=== PATIENT | male | born 1935 | race Caucasian/White ===

== ENCOUNTER 2017-05-21 17:14 | Emergency (ER) | payer OTHER ==
[~2017-05-21] VITALS: Ht 177.8 cm; Wt 101.3 kg
[2017-05-21 17:25] VITALS: TEMP 37.3; Ht 177.8 cm; Wt 101.3 kg
[2017-05-21] MEDS ORDERED: OPTIRAY 320 IV PRN (19:15)
[2017-05-21] MEDS ORDERED: GLIM2TAB2 PO (19:21)
[2017-05-21] MEDS ORDERED: ASPI-427 PO (19:21)
[2017-05-21] MEDS ORDERED: VLSO15 TOP (19:21)
[2017-05-21] MEDS ORDERED: ATOR-22 PO (19:21)
[2017-05-21] MEDS ORDERED: CARV6.25 PO (19:21)
[2017-05-21] MEDS ORDERED: METF-384 PO (19:21)
[2017-05-21] MEDS ORDERED: MULTCHW PO (19:22)
[2017-05-21 19:58] LABS: URINE APPEARANCE CLEAR (CLEAR); URINE COLOR ORANGE; URINE EPITHELIAL CELL AUTO 20-30 /lpf (0-5); URINE NITRITE POS (NEG); URINE SPECIFIC GRAVITY 1.037 (1.000-1.030); UROBILINOGEN NEG (NEG); ZZUR CULT IF INDIC CLEAN CATCH NO
[2017-05-21 20:02] LABS: MANUAL MICROSCOPIC REQUIRED? NO; REVIEW REQ? NO; URINE BILIRUBIN NEG (NEG)
[2017-05-21 20:32] LABS: BASO % 0.9 %; BASO ABS # 0.04 K/uL (0-0.2); COMPLETE YES; LYMPH % 37.2 %; LYMPH ABS # 1.63 K/uL (1.2-3.4); MEAN CORPUSCULAR HEMOGLOBIN 30.8 pg (25-34); MEAN CORPUSCULAR HGB CONC 33.2 g/dl (32-36); MEAN PLATELET VOLUME 11.5 fL (7.4-10.4); MONO % 15.8 %; NEUT % 46.1 %; PLATELET COUNT 154 K/uL (130-400); RED BLOOD COUNT 4.41 M/uL (4.7-6.1); WHITE BLOOD COUNT 4.38 K/uL (4.8-10.8)
--- NOTE | 2017-05-21 20:34 | EMERGENCY ROOM VISIT NOTE ---
ED Visit Note First contact with patient: 18:40 Patient was seen by our PA/TRAFFIC II MANAGER. I was involved in the patient's care and did evaluate the patient myself. I was involved in the care throughout the ER stay. The patient presents with intermittent abdominal pain. He's had some chills and sweats. Laboratory testing has been ordered and is pending. Urine testing has been ordered. An abdominal and pelvis CT has been ordered. Results are pending at this time. Right now, the patient is in no significant distress, he is not toxic or febrile. Disposition will depend on the results of his testing.
--- NOTE | 2017-05-21 20:57 | DIAGNOSTIC IMAGING REPORT ---
CHEST 2 VIEWS ROUTINE CLINICAL HISTORY: fevers/chills/night sweats COMPARISON STUDY: No previous studies for comparison. FINDINGS: The heart is normal in size. There is no failure. There is no lobar consolidation. There are old left-sided rib fractures. There is subtle interstitial thickening with a subpleural distribution.[ IMPRESSION: Subtle interstitial thickening with a subpleural distribution, possibly chronic. No evidence of lobar consolidation. Electronically signed by: Alistair Penaloza M.D. 05/21/2017 8:56 PM Dictated Date/Time: 05/21/2017 8:55 PM
[2017-05-21 21:03] LABS: ALKALINE PHOSPHATASE 89 U/L (45-117); ALT/SGPT 43 U/L (12-78); AST/SGOT 32 U/L (15-37); BLOOD UREA NITROGEN 16 mg/dl (7-18); BUN/CREATININE RATIO 15.7 (10-20); CALCIUM 8.5 mg/dl (8.5-10.1); CARBON DIOXIDE 28 mmol/L (21-32); CHLORIDE 101 mmol/L (98-107); GLUCOSE 274 mg/dl (70-99); MAGNESIUM 1.8 mg/dl (1.8-2.4); POTASSIUM 4.1 mmol/L (3.5-5.1); SODIUM 134 mmol/L (136-145); THYROID STIMULATING HORMONE 0.961 uIu/ml (0.300-4.500)
--- NOTE | 2017-05-21 21:44 | DIAGNOSTIC IMAGING REPORT ---
CT ABD/PELVIS IV AND ORAL CONT CLINICAL HISTORY: Generalized abdominal pain COMPARISON STUDY: None. TECHNIQUE: Following the IV administration of 93 mL of Optiray-320, CT scan of the abdomen and pelvis was performed from the lung bases to the proximal femurs. Images are reviewed in the axial, sagittal, and coronal planes. IV contrast was administered without complication. A dose lowering technique was utilized adhering to the principles of ALARA. CT DOSE: 1025.75 mGycm FINDINGS: The study is mildly compromised due to patient motion artifact Lower chest: There are coronary artery calcifications. There are minimal dependent atelectatic changes. Liver: The contrast-enhanced liver is normal in size, contour, and attenuation. There is no intrahepatic biliary ductal dilatation. The hepatic veins and portal veins are patent. Gallbladder: Unremarkable. Spleen: Normal in size and attenuation. Pancreas: Unremarkable. Adrenal glands: Unremarkable. Kidneys: There is a 6 mm right renal cyst. There are no solid renal masses. There is no hydronephrosis. Bowel: There are no transition zones indicate bowel obstruction. By history the appendix is surgically absent. There is no acute appendicitis. Peritoneum: There is a fat-containing umbilical hernia with mild edema of the hernia fat. Vasculature: The abdominal aorta is normal in course and caliber. Adenopathy: None. Pelvic viscera: The bladder, and pelvic viscera are unremarkable. Skeletal structures: No destructive osseous lesions are seen. IMPRESSION: 1. No evidence of bowel obstruction. No evidence of free air 2. Surgically absent appendix. No evidence of acute diverticulitis 3. Fat-containing umbilical hernia with mild edema of the hernia fat Electronically signed by: Alistair Penaloza M.D. 05/21/2017 9:42 PM Dictated Date/Time: 05/21/2017 9:39 PM
[2017-05-21 21:50] VITALS: BP 155/76; PULSE 72; O2SAT 98
[2017-05-21] MEDS ORDERED: CIPROFLOXACIN 500 MG TAB PO STA (21:51)
[2017-05-21] MEDS ORDERED: CIPR-255 PO (22:01)
--- NOTE | 2017-05-21 22:04 | EMERGENCY ROOM VISIT NOTE ---
History First contact with patient: 18:40 Chief Complaint: OTHER COMPLAINT Stated Complaint: CHILLS,SWEATS History of Present Illness The patient is a 82 year old male who presents to the Emergency Room with complaints of intermittent abdominal pain, fevers, chills, night sweats. The patient states his symptoms have been going on for several months. He has not seen his PCP in over one year. The patient states in the past 2 months, he has had 2 episodes of an abdominal bulge through the belly button. He states that this is painful and that the bulge is hard on occasion. He states that he leaves it alone and does not mess with it, and it eventually goes away on its own. The patient states he has also on occasion over the past few months had some shivering, chills, sweats, and has awoken on several occasions in the middle of the night with soaked bedsheets to sweating. The patient is in the process of changing his PCP to Dr. Crum, and has an appointment scheduled for June 10. The patient did not feel that he was able to wait because of his pain in his abdomen, so contact edema on any medical group today. He states he talked to a nurse who advised him to come to the emergency Department in case he has a hernia or an ulcer. The patient denies nausea, diarrhea, constipation, fevers, urinary symptoms, chest pain, dyspnea, headache, dizziness. He denies syncope, confusion, altered mental status. The patient states his pain is only located where and when he has the lump in his abdomen. He rates this pain 3/10. Review of Systems A complete 10 point review of systems was reviewed with the patient with pertinent positives and negatives as per history of present illness. All else were negative. Past Medical/Surgical History Patient denies Social History Smoking Status: Never Smoker Smokeless Tobacco Use: No Alcohol Use: none Drug Use: none Marital Status: Housing Status: lives with family Occupation Status: retired Current/Historical Medications Scheduled Aspirin (Ecotrin Regular Strength), 1 TAB PO DAILY Atorvastatin (Lipitor), 20 MG PO DAILY Carvedilol (Coreg), 6.25 MG PO BID Ciprofloxacin Hcl (Cipro), 500 MG PO BID Glimepiride (Glimepiride), 1 TAB PO DAILY Metformin Hcl (Glucophage), 1,000 MG PO BID Multiple Vitamins W/ Minerals (Centrum Silver), 1 TAB PO DAILY Scheduled PRN Betamethasone Rosa (Valisone 0.1% Oint), 1 APPLN TOP BID PRN for ITCHING Allergies None Physical Exam Vital Signs Date Time Temp Pulse Resp B/P (MAP) Pulse Ox O2 Delivery O2 Flow Rate FiO2 05/21/17 21:50 72 16 155/76 98 Room Air 05/21/17 20:56 97 16 170/72 98 Room Air 05/21/17 20:09 98 05/21/17 19:31 94 16 163/71 96 Room Air 05/21/17 17:25 37.3 113 18 135/79 95 Room Air Physical Exam VITALS: Vitals are noted on the nurse's note and reviewed by myself. Vital signs stable. GENERAL: This is an 82-year-old male, in no acute distress, nondiaphoretic, well -developed well-nourished. SKIN: The skin was without rashes, erythema, edema, or bruising. There is no tenting of the skin. Capillary reflex less than 2 seconds. HEAD: Normocephalic atraumatic. EARS: External auditory canals clear, tympanic membranes pearly batres without erythema or effusion bilaterally. EYES: Pupils equal round and reactive to light and accommodation. Conjunctivae without injection, sclerae without icterus. Extraocular movements intact. NOSE: Patent, turbinates without inflammation or discharge. No sinus tenderness. MOUTH: Mucous membranes moist. Tonsils are not enlarged. Pharynx without erythema or exudate. Uvula midline. Airway patent. Tongue does not deviate. NECK: Supple without nuchal rigidity. No lymphadenopathy. No thyromegaly. Cervical spine is nontender. No JVD. HEART: Regular rate and rhythm without murmurs gallops or rubs. LUNGS: Clear to auscultation bilaterally without wheezes, rales or rhonchi. No dullness to percussion. No retractions or accessory muscle use. ABDOMEN: Positive bowel sounds x 4. Normal tympanic percussion. Soft, nontender, without masses or organomegaly. No palpable mass or hernia on examination at this time. Doran sign negative. No guarding or rebound tenderness. MUSCULOSKELETAL: No muscle atrophy, erythema, or edema noted. Full range of motion without joint tenderness in all extremities. No tenderness to palpation. Normal gait. Strength 5/5 throughout. NEURO: Patient was alert and oriented to person place and time. Normal sensation to light and sharp touch. Deep tendon reflexes 2+ throughout. No focal neurological deficits. Medical Decision & Procedures ER Provider Diagnostic Interpretation: LABS: CBC revealed extremely mild anemia, no leukocytosis, thrombocytopenia. CMP showed elevated blood glucose level of 274. Based on the patient's medications, I believe that the patient is diabetic, and he has not been to a doctor in over a year. The patient's electrolytes, kidney function, liver function were normal. Negative lipase. Negative CK-MB. Negative troponin. Negative TSH. Lactic acid was normal. Blood cultures are pending. Urinalysis did show positive nitrites, leuk esterase, and very minimal white blood cells. Further, the urine did show positive protein, glucose, and trace ketones. Urine culture is pending. RADIOLOGY: Chest x-ray: FINDINGS: The heart is normal in size. There is no failure. There is no lobar consolidation. There are old left-sided rib fractures. There is subtle interstitial thickening with a subpleural distribution.[ IMPRESSION: Subtle interstitial thickening with a subpleural distribution, possibly chronic. No evidence of lobar consolidation. CT abdomen/pelvis with IV and oral contrast: FINDINGS: The study is mildly compromised due to patient motion artifact Lower chest: There are coronary artery calcifications. There are minimal dependent atelectatic changes. Liver: The contrast-enhanced liver is normal in size, contour, and attenuation. There is no intrahepatic biliary ductal dilatation. The hepatic veins and portal veins are patent. Gallbladder: Unremarkable. Spleen: Normal in size and attenuation. Pancreas: Unremarkable. Adrenal glands: Unremarkable. Kidneys: There is a 6 mm right renal cyst. There are no solid renal masses. There is no hydronephrosis. Bowel: There are no transition zones indicate bowel obstruction. By history the appendix is surgically absent. There is no acute appendicitis. Peritoneum: There is a fat-containing umbilical hernia with mild edema of the hernia fat. Vasculature: The abdominal aorta is normal in course and caliber. Adenopathy: None. Pelvic viscera: The bladder, and pelvic viscera are unremarkable. Skeletal structures: No destructive osseous lesions are seen. IMPRESSION: 1. No evidence of bowel obstruction. No evidence of free air 2. Surgically absent appendix. No evidence of acute diverticulitis 3. Fat-containing umbilical hernia with mild edema of the hernia fat Laboratory Results 05/21/17 20:16 Red Blood Count 4.41, Mean Corpuscular Volume 93.0, Mean Corpuscular Hemoglobin 30.8, Mean Corpuscular Hemoglobin Concent 33.2, Mean Platelet Volume 11.5, Neutrophils (%) (Auto) 46.1, Lymphocytes (%) (Auto) 37.2, Monocytes (%) (Auto) 15.8, Eosinophils (%) (Auto) 0.0, Basophils (%) (Auto) 0.9, Neutrophils # (Auto ) 2.02, Lymphocytes # (Auto) 1.63, Monocytes # (Auto) 0.69, Eosinophils # (Auto ) 0.00, Basophils # (Auto) 0.04 05/21/17 20:16 Test 05/21/17 18:59 05/21/17 19:37 05/21/17 20:16 05/21/17 20:40 Creatine Kinase MB Ratio (0-3.0) Urine Color ORANGE Urine Appearance CLEAR (CLEAR) Urine pH 5.0 (4.5-7.5) Urine Specific [place] 1.037 (1.000-1.030) Urine Protein 2+ (NEG) Urine Glucose (UA) 2+ (NEG) Urine Ketones TRACE (NEG) Urine Occult Blood NEG (NEG) Urine Nitrite POS (NEG) Urine Bilirubin NEG (NEG) Urine Urobilinogen NEG (NEG) Urine Leukocyte Esterase TRACE (NEG) Urine WBC (Auto) 1-5 /hpf (0-5) Urine RBC (Auto) 5-10 /hpf (0-4) Urine Hyaline Casts (Auto) 10-30 /lpf (0-5) Urine Epithelial Cells (Auto) 20-30 /lpf (0-5) Urine Bacteria (Auto) NEG (NEG) White Blood Count 4.38 K/uL (4.8-10.8) Red Blood Count 4.41 M/uL (4.7-6.1) Hemoglobin 13.6 g/dL (14.0-18.0) Hematocrit 41.0 % (42-52) Mean Corpuscular Volume 93.0 fL (80-100) Mean Corpuscular Hemoglobin 30.8 pg (25-34) Mean Corpuscular Hemoglobin Concent 33.2 g/dl (32-36) Platelet Count 154 K/uL (130-400) Mean Platelet Volume 11.5 fL (7.4-10.4) Neutrophils (%) (Auto) 46.1 % Lymphocytes (%) (Auto) 37.2 % Monocytes (%) (Auto) 15.8 % Eosinophils (%) (Auto) 0.0 % Basophils (%) (Auto) 0.9 % Neutrophils # (Auto) 2.02 K/uL (1.4-6.5) Lymphocytes # (Auto) 1.63 K/uL (1.2-3.4) Monocytes # (Auto) 0.69 K/uL (0.11-0.59) Eosinophils # (Auto) 0.00 K/uL (0-0.5) Basophils # (Auto) 0.04 K/uL (0-0.2) RDW Standard Deviation 45.0 fL (36.4-46.3) RDW Coefficient of Variation 13.2 % (11.5-14.5) Immature Granulocyte % (Auto) 0.0 % Immature Granulocyte # (Auto) 0.00 K/uL (0.00-0.02) Anion Gap 5.0 mmol/L (3-11) Est Creatinine Clear Calc Drug Dose 69.1 ml/min Estimated GFR () 81.4 Estimated GFR (Non- 70.3 BUN/Creatinine Ratio 15.7 (10-20) Calcium Level 8.5 mg/dl (8.5-10.1) Magnesium Level 1.8 mg/dl (1.8-2.4) Total Bilirubin 2.1 mg/dl (0.2-1) Aspartate Amino Transf (AST/SGOT) 32 U/L (15-37) Alanine Aminotransferase (ALT/SGPT) 43 U/L (12-78) Alkaline Phosphatase 89 U/L (45-117) Creatine Kinase MB < 0.5 ng/ml (0.5-3.6) Troponin I < 0.015 ng/ml (0-0.045) Total Protein 7.1 gm/dl (6.4-8.2) Albumin 3.6 gm/dl (3.4-5.0) Globulin 3.5 gm/dl (2.5-4.0) Albumin/Globulin Ratio 1.0 (0.9-2) Lipase 204 U/L (73-393) Thyroid Stimulating Hormone (TSH) 0.961 uIu/ml (0.300-4.500) Chemistry Specimen Hemolysis Lactic Acid Level 1.6 mmol/L (0.4-2.0) Medications Administered Medications (Trade) Dose Ordered Sig/Tosin Route Start Time Stop Time Status Last Admin Dose Admin Ciprofloxacin (Cipro Tab) 500 mg NOW STAT PO 05/21/17 21:51 05/21/17 21:54 DC 05/21/17 21:51 500 MG ECG Indication: abdominal pain Rate (beats per minute): 98 Rhythm: normal sinus Findings: no acute ischemic change, no ectopy ED Course The patient was seen and evaluated as above. Based on his vague symptoms, I did feel that the most appropriate course of action was to start a broad workup. Labs, EKG, chest x-ray, CT abdomen were ordered. The patient was seen and evaluated by Dr. Samuels. I did review all studies as they became available. I discussed the slight abnormalities in the patient's chest x-ray and lab work with him. I encouraged patient to follow up with his PCP regarding these findings. CT scan did verify a ventral, fat-containing hernia. I do feel that this is the cause of the bulge in the patient's abdomen. The patient was given a dose of ciprofloxacin in the emergency department for his urinary tract infection. The patient was discharged home in good condition with home care instructions and follow-up instructions. Medical Decision The patient presented today with very vague symptoms in the emergency department. I do believe that the bulge she is speaking of and his abdomen is caused by the central, fat-containing hernia. I do not feel that this needs further treatment, but the patient is concerned about the discomfort he experiences with this hernia. I did encourage him to follow up with a surgeon if needed. There are some nonspecific findings on the patient's chest x-ray and labs. I did encourage the patient to follow up with his PCP regarding his findings. Incidentally, we did note a urinary tract infection. I believe that it is possible that the urinary tract infection is causing the patient's random sweats intermittently. Urine culture is pending, and the patient will be treated at this time. Differential diagnosis includes: Urinary tract infection, pneumonia, diverticulitis, abscess, abdominal infection, nephrolithiasis, tuberculosis, malignancy, hernia, and others. Medication Reconcilliation Current Medication List: was personally reviewed by me Blood Pressure Screening Patient's blood pressure: Normal blood pressure Impression Primary Impression: Urinary tract infection Additional Impression: Ventral hernia Departure Information Dispostion Home / Self-Care Condition GOOD Prescriptions Ciprofloxacin Hcl (CIPRO) 500 Mg Tab 500 MG PO BID for 10 Days, #20 TAB Prov: Rashida Salcido PA-C 05/21/17 Referrals Jerome Crum M.D. (PCP) Patient Instructions ED UTI Cystitis Male, My [facility] Additional Instructions He was seen in the emergency department today regarding abdominal pain and a ventral hernia. CT scan did verify the ventral hernia, which is fat- containing. We did note a UTI in the ED as well, for which you will be treated. You have been prescribed Cipro to be taken twice daily. This is an antibiotic. All antibiotics have the potential to cause diarrhea. Stop this medication and contact a medical provider if you were to develop any significant adverse side effects including: wheezing, shortness of breath, passing out, vomiting, or a diffuse rash. Please avoid excessive or heavy lifting, as this medication does increase her risk for tendon rupture. Always take antibiotics as directed and COMPLETE the ENTIRE course regardless of the improvement of your symptoms. Drink plenty of water and stay well hydrated. If you continue to experience significant pain and discomfort with the hernia, you should follow up with a general surgeon. Then provided with the name and phone number for a local surgeon. As with any trip to the Emergency Department, you should follow-up with your Primary Care Provider from today's visit. Your appointment on June 10 is reasonable for this follow-up. Return to the emergency department if your symptoms persist despite treatment plan outlined above or if the following symptoms occur: increased fevers, chills , low back pain, nausea/vomiting, or blood in your urine. Problem Qualifiers Primary Impression: Urinary tract infection Urinary tract infection type: site unspecified Hematuria presence: without hematuria Qualified Codes: N39.0 - Urinary tract infection, site not specified Additional Impression: Ventral hernia Obstruction and gangrene presence: without obstruction or gangrene Qualified Codes: K43.9 - Ventral hernia without obstruction or gangrene
== END 2017-05-21 22:20 | disposition home or self-care (01) ==
LOC: C.EDB 17:15 → C.EDA 22:20
DX: N39.0 Urinary tract infection, site not specified (principal); K43.9 Ventral hernia without obstruction or gangrene; Z79.82 Long term (current) use of aspirin; Z79.899 Other long term (current) drug therapy

== ENCOUNTER → 2018-05-16 | Outpatient (CLI) | payer OTHER ==
[~2018-05-16] MED LIST: ASPI-427 PO; ATOR-22 PO; CARV6.25 PO; CIPR-255 PO; GLIM2TAB2 PO; METF-384 PO; MULTCHW PO; VLSO15 TOP
[2018-05-16 14:15] LABS: HEMOGLOBIN A1C 8.3 % (4.5-5.6)
[2018-05-16 14:22] LABS: BLOOD UREA NITROGEN 15 mg/dl (7-18); CALCIUM 8.9 mg/dl (8.5-10.1); CARBON DIOXIDE 25 mmol/L (21-32); CREATININE 0.87 mg/dl (0.60-1.40); GLUCOSE 145 mg/dl (70-99); POTASSIUM 4.4 mmol/L (3.5-5.1); SODIUM 139 mmol/L (136-145)
== END | disposition home or self-care (01) ==
LOC: C.LABPBG 07:48
PROVIDERS: ATTEND Internal Medicine
DX: I10 Essential (primary) hypertension (principal); E11.29 Type 2 diabetes mellitus with other diabetic kidney complication; R80.9 Proteinuria, unspecified

== ENCOUNTER 2019-07-17 06:35 | Observation (INO) ==
[2019-07-13 15:41] LABS: Basophils # (auto) 0.04 K/uL (0-0.2); Basophils % (auto) 0.5 %; Eosinophils # (auto) 0.03 K/uL (0-0.5); Eosinophils % (auto) 0.4 %; Hematocrit (blood only) 36.6 % (42-52); Hemoglobin 12.4 g/dL (14.0-18.0); Immature Granulocytes # (auto) 0.02 K/uL (0.00-0.02); Immature Granulocytes % (auto) 0.2 %; Lymphocytes # (auto) 2.44 K/uL (1.2-3.4); Mean Corpuscular Hemoglobin 31.4 pg (25-34); Mean Corpuscular Hgb Conc 33.9 g/dL (32-36); Mean Corpuscular Volume 92.7 fL (80-100); Mean Platelet Volume 10.1 fL (7.4-10.4); Monocytes # (auto) 0.71 K/uL (0.11-0.59); Monocytes % (auto) 8.7 %; Neutrophils # (auto) 4.89 K/uL (1.4-6.5); Neutrophils % (auto) 60.2 %; Platelet Count 351 K/uL (130-400); RDW Coefficient of Variation 12.5 % (11.5-14.5); RDW Standard Deviation 42.7 fL (36.4-46.3); Red Blood Count 3.95 M/uL (4.7-6.1); White Blood Count 8.13 K/uL (4.8-10.8)
[2019-07-13 15:58] LABS: Appearance Urine Clear (Clear); Bacteria Urine Automated Negative (Negative); Bilirubin Urine Negative (Negative); Blood Urine Negative (Negative); Color Urine Dark Yellow; Glucose Urine UA Negative (Negative); Ketones Urine Trace (Negative); Leukocyte Esterase Urine Negative (Negative); Nitrite Urine Negative (Negative); Protein Urine Trace (Negative); RBC Urine Automated 0-4 /hpf (0-4); Specific Gravity Urine 1.033 (1.000-1.030); Urobilinogen Urine Positive (Negative); pH Urine 5.5 (4.5-7.5)
--- NOTE | 2019-07-14 13:50 | Anesthesiology Consultation ---
Date of Service July 14, 2019 Assessment & Plan Chart Review Chart Review: Acceptable Risk for Surgery and Patient NOT seen in Pre Admission Testing Consults Requested none ASA ASA4 Proposed Anesthesia Anesthesia Type: General Regional Regional Laterality: Right Site: Popliteal and Adductor Canal History Surgery Operation Date: 07/17/19 12:45 Proposed Procedures p Right Lateral Malleolus Fracture Open Reduction Internal Fixation - Nawaf [place], Height/Weight Height: 5 ft 9 in Weight: 92.986 kg Allergies Allergy/AdvReac Type Severity Reaction Status Date / Time No Known Allergies Allergy Verified 07/14/19 09:29 Medications Home Medications Medication Instructions Recorded Confirmed Last Taken aspirin [Ecotrin] 325 mg PO QAM 07/14/19 07/14/19 Unknown atorvastatin 20 mg PO QAM 07/14/19 07/14/19 Unknown carvedilol 6.25 mg PO BID 07/14/19 07/14/19 Unknown glimepiride 2 mg PO QAM 07/14/19 07/14/19 Unknown metformin 1,000 mg PO BID 07/14/19 07/14/19 Unknown iwgitlpu-hxm-LW-lycopen-lutein 1 tab PO QAM 07/14/19 07/14/19 Unknown [Centrum Silver] sitagliptin 50 mg PO QAM 07/14/19 07/14/19 Unknown Past Medical History Medical History Proteinuria due to type 2 diabetes mellitus Systolic murmur Hiatal hernia with GERD BMI 34.0-34.9,adult CAD (coronary artery disease) Mild anemia Diabetes mellitus, type 2 Hypertension Hyperlipidemia Exercise / Class Metabolic Activity III < 4 Walking/Shop/Light housework Past Family History Family History Other No significant family history Past Surgical History Surgical History History of appendectomy 1950 History of cataract surgery RT/LEFT Hx of vasectomy S/P trigger finger release Past Anesthesia History No Hx of Anesthesia Complications and No Family Hx of Anesthesia Complications History of PONV No Hx of PONV and No Hx of Motion Sickness Social History Smoking Status: Never smoker Do You Dip or Chew Tobacco: No Hx Alcohol Use: Yes Alcohol type: beer, wine and hard liquor alcohol intake frequency: a few times a month Hx Substance Use: No substance use type: does not use Testing Laboratory Results 07/13/19 14:30 Urine Color Dark Yellow 07/13/19 14:56 Urine Appearance Clear (Clear) 07/13/19 14:56 Urine pH 5.5 (4.5-7.5) 07/13/19 14:56 Ur Specific [place] 1.033 (1.000-1.030) H 07/13/19 14:56 Urine Protein Trace (Negative) H 07/13/19 14:56 Urine Glucose (UA) Negative (Negative) 07/13/19 14:56 Urine Ketones Trace (Negative) H 07/13/19 14:56 Urine Nitrite Negative (Negative) 07/13/19 14:56 Ur Leukocyte Esterase Negative (Negative) 07/13/19 14:56 Urine WBC (Auto) 1-5 /hpf (0-5) 07/13/19 14:56 Urine RBC (Auto) 0-4 /hpf (0-4) 07/13/19 14:56 U Hyaline Cast (Auto) 5-10 /lpf (0-5) H 07/13/19 14:56 U Epithel Cells (Auto) 5-10 /lpf (0-5) H 07/13/19 14:56 Urine Bacteria (Auto) Negative (Negative) 07/13/19 14:56 Electrocardiogram Date: 07/13/19 Findings: + NSR @ (at 96) Chest X-Ray Date: 07/13/19 Findings: + atherosclerosis of thoracic aorta chronic lung disease vs emphysema;? chronic indolent infection
--- NOTE | 2019-07-16 09:04 | History & Physical Report ---
Date of Service July 16, 2019 Assessment & Plan (1) Fracture of lateral malleolus of right ankle: Schedule ORIF right lateral malleolus fx for 07.16.19. All potential risks, benefits, complications, alternatives, and rehab have been discussed with the patient and he wishes to proceed. Plan for ASA 81 mg BID x 6 wks for post op DVT prophylaxis. History of Present Illness Chief Complaint: right ankle pain Primary Care Provider: Jerome Crum MD This is a patient who sustained a right ankle injury ~2 weeks ago. At the time of the injury, the pain was minimal. However, the following day, the pain worsened and he couldn't bear weight. X-rays noted a lateral malleolus fx with possible syndesmotic injury. He is being set up for surgical management. Allergies Allergy/AdvReac Type Severity Reaction Status Date / Time No Known Allergies Allergy Verified 07/14/19 14:47 Home Medications Home Medications Medication Instructions Recorded Confirmed Type aspirin [Ecotrin] 325 mg PO QAM 07/14/19 07/14/19 History atorvastatin 20 mg PO QAM 07/14/19 07/14/19 History carvedilol 6.25 mg tablet 6.25 mg PO DAILY tab 07/14/19 07/14/19 History glimepiride 2 mg PO QAM 07/14/19 07/14/19 History metformin 1,000 mg PO BID 07/14/19 07/14/19 History xhcegrta-ydr-DN-lycopen-lutein 1 tab PO QAM 07/14/19 07/14/19 History [Centrum Silver] oxycodone 5 mg capsule 5 mg PO Q6H PRN cap 07/14/19 07/14/19 History sitagliptin 50 mg PO QAM 07/14/19 07/14/19 History Past Med/Surg History Medical History Proteinuria due to type 2 diabetes mellitus Systolic murmur Hiatal hernia with GERD BMI 34.0-34.9,adult CAD (coronary artery disease) Mild anemia Diabetes mellitus, type 2 Hypertension Hyperlipidemia Surgical History History of appendectomy 1950 History of cataract surgery RT/LEFT Hx of vasectomy S/P trigger finger release Family History Other No significant family history Social History Preferred Language: Niuean Communication Ability: Effective Campus Security Officer Required: No Beliefs That Will Affect Care: None Current Living Situation: Alone Feels Safe at Home: Yes Smoking Status: Never smoker Second Hand Exposure: No ; Hx Alcohol Use: Yes Alcohol type: beer, wine and hard liquor Hx Substance Use: No Physical Exam Constitutional: well developed and well nourished; no acute distress ENMT: external ear and nose normal, oropharynx normal Neck: trachea midline, no thyromegaly Respiratory: normal respiratory effort, lungs clear to auscultation Cardiovascular: Rate/Rhythm: regular rate and regular rhythm Heart Sounds: + murmur Gastrointestinal (Abdomen): normal bowel sounds, soft, nontender, no hepatosplenomegaly Musculoskeletal: Shoulder: + joint line tenderness (right lateral malleolus) Ankle: + effusion (right), + limited ROM of ankle (right) and + joint line tenderness (right lateral malleolus); no deformity, no skin erythema and no ecchymosis Skin: no rashes, warm and dry Neurologic: normal touch/pain/proprioception Psychiatric: A+Ox3, euthymic affect Lymphatic: no cervical or axillary lymphadenopathy
[~2019-07-17 06:35] MED LIST changes: -ASPI-427 PO; -ATOR-22 PO; -CARV6.25 PO; +CEFAZOLIN 2000MG 2,000 MG/15 ML SYR IV SCH; -CIPR-255 PO; -GLIM2TAB2 PO; +LR 15ML/HR IV SCH; -METF-384 PO; -MULTCHW PO; +ROPIVACAINE 0.5% 5 MG/ML 30 ML VIAL ONE; -VLSO15 TOP
--- NOTE | 2019-07-17 07:36 | History & Physical Bridge Note ---
Date of Service July 17, 2019 History & Physical Bridge Note I have examined the patient, reviewed the History & Physical and in the interval since the performance of the History & Physical I have noted the following changes of clinical significance: no changes noted
[2019-07-17] MEDS ORDERED: fentaNYL citrate 100 MCG/2 ML VIAL ONE (07:38)
[2019-07-17] MEDS ORDERED: BUPIVACAINE/EPINEPHRINE 0.5% MPF 1:200,000 30 ML VIAL ONE (08:17)
[2019-07-17] MEDS ORDERED: CEFAZOLIN 2,000 MG/15 ML IV PUSH IV ONE (08:27)
[2019-07-17] MEDS ORDERED: MIDAZOLAM HCL 1 MG/ML 2ML VIAL ONE (08:30)
[2019-07-17] MEDS ORDERED: BUPIVACAINE 0.5 % 5 MG/1 ML MPF 30ML VIAL ONE (08:47)
[2019-07-17] MEDS ORDERED: PROPOFOL IV EMULSION 10 MG/ML 20 ML VIAL IV ONE (09:00)
[2019-07-17] MEDS ORDERED: LIDOCAINE HCL 2% 2 ML VIAL/AMP(20MG/ML) INFIL ONE (09:00)
[2019-07-17] MEDS ORDERED: ONDANSETRON INJ 2 MG/ML 2 ML VIAL ONE (09:00)
[2019-07-17] MEDS ORDERED: DEXAMETHASONE SOD INJ 4 MG/ML VIAL ONE (09:00)
[2019-07-17] MEDS ORDERED: KETOROLAC 30 MG/ML VIAL IV PRN (09:59)
[2019-07-17] MEDS ORDERED: fentaNYL citrate 100 MCG/2 ML VIAL IV PRN (09:59)
[2019-07-17] MEDS ORDERED: ONDANSETRON INJ 2 MG/ML 2 ML VIAL IV PRN ×2 (09:59→14:12)
[2019-07-17] MEDS ORDERED: ATROPINE SULFATE 0.1 MG/ML 10ML SYR IV PRN (09:59)
--- NOTE | 2019-07-17 10:01 | Post Operative Brief Note ---
Immediate Post Op Note v1 Date of Surgery July 17, 2019 Pre & Post Diagnosis Operation Date: 07/17/19 08:35 Pre-Op Diagnosis: Right Ankle Displaced Lateral Malleolus Fracture Post-Op Diagnosis: Right Ankle Displaced Lateral Malleolus Fracture I identified the patient and participated in the time-out.: Yes Procedure Operation Date: 07/17/19 08:35 Actual Procedures p Right Displaced Lateral Malleolus Fracture Open Reduction Internal Fixation(Right) - Nawaf Menchaca DO Surgeon Nawaf Menchaca DO Coil Inspector Bernard Thornton PA-C Estimated Blood Loss 2 Findings Consistent with Post-Op Diagnosis Specimens None Anesthesia Type General Regional Complications none Disposition Accompanied Patient To Recovery: No Disposition: Recovery Room Overlapping Procedure I was present for: the critical portions of procedure. I was immediately available: during the entire case.
--- NOTE | 2019-07-17 10:31 | Fluoroscopy Report ---
FL ankle RT min 3V RTN CLINICAL HISTORY: RT ORIF COMPARISON STUDY: None. FLUOROSCOPY TIME: 10 seconds. FINDINGS: 3 fluoroscopic spot images of the right ankle demonstrates internal fixation of a distal fi bular fracture with a cortical plate and screws. The hardware appears intact. The alignment appears a natomic. IMPRESSION: Fluoroscopy provided for internal fixation of a distal fibular fracture. Electronically signed by: Cameron Stover M.D. 07/17/2019 10:30 AM
[2019-07-17] MEDS ORDERED: OXYCODONE HCL IR 5 MG TAB (IMMEDIATE RELEASE) PO PRN ×2 (10:32→14:12)
[2019-07-17] MEDS ORDERED: ACETAMINOPHEN 1,000 MG/100 ML VIAL IV PRN (10:32)
--- NOTE | 2019-07-17 10:33 | Anesthesiology Progress Note ---
Date of Service July 17, 2019 Anesthesia Post Procedure Vital Signs Vital Signs: Temp Pulse Pulse Resp BP Pulse Ox 07/17/19 10:30 70 16 129/56 L 100 07/17/19 10:20 36.0 C L 83 16 127/51 L 99 07/17/19 07:04 36.6 C 88 18 141/71 H 96 Pain Intensity Right Ankle: Pain Intensity: 3 Transfer of Care Handoff Completed per policy Notes Mental Status: alert / awake / arousable Patient Amnestic to Procedure: Yes Nausea / Vomiting: adequately controlled Pain: adequately controlled Airway Patency, RR, SpO2: stable & adequate BP & HR: stable & adequate Hydration State: stable & adequate Anesthetic Complications: no major complications apparent
--- NOTE | 2019-07-17 10:54 | Operative Report ---
DATE OF OPERATION: 07/17/2019 PREOPERATIVE DIAGNOSIS: Right displaced lateral malleolus fracture. POSTOPERATIVE DIAGNOSIS: Right displaced lateral malleolus fracture. PROCEDURE: Open reduction and internal fixation of right displaced lateral malleolus fracture. SURGEON: Nawaf Menchaca DO. TERMINAL WORKER: WILLIAM Madera who was present for patient positioning, sterile prep and drape, management of retractors and instruments. He was present through the critical portions of the case including wound closure, application of sterile dressing and transport of the patient to recovery. ANESTHESIA: General regional. SPECIMENS: None. DRAINS: None. COMPLICATIONS: None. BLOOD LOSS: 2 mL. PERTINENT HISTORY: This is an 84-year-old gentleman who sustained a twisting injury of his right ankle. He sustained a displaced right lateral malleolus fracture with widening of the ankle mortise. The patient was then scheduled for surgery as indicated. All potential risks, benefits, complications, alternatives, rehab potential for incomplete relief of symptoms, need for further surgery, DVT, PE, , persistent pain, swelling, scarring, weakness, neurovascular injury, wound complications, hardware failure, nonunion, malunion, bone fracture were discussed with the patient. The patient decided to proceed with the procedure as indicated. DESCRIPTION OF PROCEDURE: After popliteal block was administered to the patient by the anesthesiologist, the patient was then taken to the operative suite, placed supine on the operating room table. I reviewed consent and identification of proper operative site, patient was anesthetized, LMA was placed. Tourniquet was placed high on the right thigh over cast padding. Right lower extremity was then sterilely prepped and draped in usual fashion, elevated and exsanguinated with an Esmarch bandage, tourniquet inflated to 350 mmHg. A 15 blade scalpel was used to make an incision along the lateral malleolus of the right ankle. The incision was deepened through subcutaneous tissue. Meticulous hemostasis was achieved with electrocautery. Acacia rakes were placed to retract soft tissue. Neurovascular structures were retracted and protected when possible. Hemostasis was achieved with electrocautery. The sensor cutaneous nerve was retracted and protected with Acacia rake. The peroneal tendons were identified and avoided. Next, a 15 blade was used to incise the periosteum of the lateral malleolus. This was sharply elevated at the fracture site. Fracture site was then irrigated and debrided with a small dental pick and a curette. Next, the fracture was then reduced to near anatomic position under live fluoroscopic assistance, held in place with bone forceps and then a single 3.5 mm lag screw was applied from anterior to posterior under live fluoroscopic assistance. Next, an 8-hole one-third tubular Synthes locking plate was then contoured and then firmly affixed to the lateral aspect of the lateral malleolus with a nonlocking screw under live fluoroscopic assistance. Next, multiple locking screws were used to stabilize the fracture in anatomic position and alignment through the locking plate. Final radiographs were obtained noting anatomic reduction and fixation with plate and screws. Then, the incision was then copiously irrigated with sterile normal saline followed by closure of the deep soft tissue and periosteum with 2-0 Vicryl and the dermis was closed using buried interrupted 3-0 Vicryl and skin was closed using 4-0 nylon. A sterile compressive dressing and bulky Arcenio Gibbs plaster splint was applied, overwrapped with an Km wrap. The foot was held in neutral dorsiflexion. Tourniquet was released. The toes were pink and warm. The tourniquet was released. The patient was awakened and taken to recovery in stable condition. I attest to the content of the Intraoperative Record and any orders documented therein. Any exception s are noted below.
[2019-07-17] MEDS ORDERED: BISACODYL 10 MG SUPP PR PRN (14:12)
[2019-07-17] MEDS ORDERED: NALOXONE HCL 0.4 MG/1 ML VIAL/CARP IV PRN (14:12)
[2019-07-17] MEDS ORDERED: HYDROmorphone INJ 0.5 MG/0.5 ML SYR IV PRN (14:12)
[2019-07-17] MEDS ORDERED: MAGNESIUM HYDROXIDE SUSP 30 ML UDC PO PRN (14:12)
[2019-07-17] MEDS: SODIUM CHLORIDE 0.9% 1000ML 1,000 ML IV SCH (14:47)
[2019-07-17] MEDS: ACETAMINOPHEN 500 MG TAB PO SCH ×2 (14:47→21:39)
[2019-07-17] MEDS: CEFAZOLIN 2000MG 2,000 MG/15 ML SYR IV SCH (15:56)
[2019-07-17] MEDS: METFORMIN HCL 500 MG TAB PO SCH (17:36)
[2019-07-17] MEDS: DOCUSATE SODIUM 100 MG CAP PO SCH (20:40)
[2019-07-18] MEDS: CEFAZOLIN 2000MG 2,000 MG/15 ML SYR IV SCH (00:24)
[2019-07-18] MEDS ORDERED: Nursing to Pharmacy Communication ONE (00:56)
[2019-07-18 03:16] VITALS: TEMP 97.9; O2SAT 97
[2019-07-18] MEDS: SODIUM CHLORIDE 0.9% 1000ML 1,000 ML IV SCH (03:36)
[2019-07-18] MEDS: ACETAMINOPHEN 500 MG TAB PO SCH (05:44)
[2019-07-18 05:53] LABS: BUN Creatinine Ratio 17.9 (10-20); Calcium 8.4 mg/dl (8.5-10.1); Creatinine Clr Calc Pharmacy 73.9 ml/min; Est GFR (African American) 92.5; Est GFR (Non-African American) 79.8; Potassium 4.1 mmol/L (3.5-5.1)
[2019-07-18 07:33] VITALS: BP 119/57
[2019-07-18] MEDS: METFORMIN HCL 500 MG TAB PO SCH (08:52)
[2019-07-18] MEDS: DOCUSATE SODIUM 100 MG CAP PO SCH (08:52)
[2019-07-18] MEDS ORDERED: MULTIVITAMIN TAB PO SCH (09:00)
[2019-07-18] MEDS ORDERED: SITAGLIPTIN PHOSPHATE 25 MG TAB PO SCH (09:00)
[2019-07-18] MEDS ORDERED: GLIMEPIRIDE 2 MG TAB PO SCH (09:00)
[2019-07-18] MEDS ORDERED: ASPIRIN 325 MG ECTAB PO SCH (09:00)
[2019-07-18] MEDS ORDERED: CARVEDILOL 6.25 MG TAB PO SCH (09:00)
[2019-07-18] MEDS ORDERED: ATORVASTATIN 20 MG TAB PO SCH (09:00)
--- NOTE | 2019-07-18 09:53 | Orthopedic Progress Note ---
Date of Service July 18, 2019 Assessment & Plan (1) Fracture of lateral malleolus of right ankle: Plan for dc today. TEDS and ASA 81 mg Home health Subjective POD #1 orif right lateral malleolus. doing well, he is requesting to go home. minimal pain. NO CP, SOB, dizziness Physical Exam Physical Exam: NVI. Calves soft, non tender. splint in place. Results & Data Vital Signs (Past 12 Hours) Vital Signs Temp Pulse Pulse Resp BP Pulse Ox 07/18/19 07:31 36.6 C 68 16 119/57 L 97 07/18/19 03:10 36.6 C 64 16 107/50 L 97 07/17/19 23:10 36.5 C 78 18 118/58 L 96
[2019-07-18 11:19] VITALS: PULSE 64
--- NOTE | 2019-07-22 22:32 | Discharge Summary ---
DISCHARGE DIAGNOSIS: Right displaced lateral malleolar fracture. 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 CONSULTATIONS: None. COMPLICATIONS: None. PROCEDURES: ORIF, right displaced lateral malleolus fracture by Dr. Menchaca on 07/17/2019. BRIEF HISTORY: As dictated in the history and physical. HOSPITAL SUMMARY: The patient was admitted on the above-noted date and had the above-noted surgery performed, which he tolerated well. Postoperatively, the patient was kept for pain control and monitoring, and by his first postoperative day, he was remaining stable. He was requesting to go home. He had minimal pain. No chest pain, shortness of breath or dizziness. Calves were soft, nontender. Splint was in place. Neurovascularly intact. Vital signs were stable. He was afebrile and it was felt he could be discharged to home. For further review, please see chart. LABORATORY AND X-RAY DATA: As per chart. DISCHARGE INSTRUCTIONS: The patient was discharged to home in satisfactory condition. Diet: Diabetic. Activity: Please use a walker or crutches for ambulation, nonweightbearing on the right lower extremity. Keep splint clean and dry, shower with waterproof dressing over the splint, keep the ankle elevated on at least 1 pillow when at rest. Increase activity as tolerated. Call the office if you have increased pain, swelling of the toes, temperature of 105 or greater. Follow up with Dr. Menchaca or his PA in 10-14 days, call for appointment if one has not been made for you. DISCHARGE MEDICATIONS: Acetaminophen 1000 mg p.o. q. 8 hours, aspirin 325 mg p.o. q.a.m., multivitamin 1 tab p.o. daily, oxycodone 5 mg p.o. q. 4 hours p.r.n. Resume home meds as listed.
== END 2019-07-18 12:25 | disposition home health service (06) ==
LOC: 3E 06:35 → ASU 06:35

== ENCOUNTER 2022-06-17 01:40 | Inpatient (IN) ==
[2022-06-17] MEDS ORDERED: ASPIRIN CHEW 324 MG PO STA (01:53)
[2022-06-17] MEDS ORDERED: NITROGLYCERIN SL 0.4 MG/TAB TAB SL STA (01:53)
--- NOTE | 2022-06-17 02:01 | Emergency Department Note ---
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 He did not try any nitroglycerin. 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 Echo in March was reviewed. Patient states tonight he had some more chest pain with activity that resolved with rest. Patient denies radiating pain, dyspnea, nausea, diaphoresis, abdominal pain, recent illness, leg pain or swelling. He states he is healthy and very active gentleman. Home Medications Medication Instructions Recorded Confirmed Type [id number] acid 0.4 1 tab PO QAM 07/14/19 04/03/22 History mg-lycopene 300 mcg-lutein 250 mcg tablet (Centrum Silver) blood sugar diagnostic (OneTouch #200 ea 02/22/21 01/29/22 Rx Verio test strips) Glucocil Otc 2 tab PO UD 04/03/21 04/03/22 History aspirin 81 mg tablet,delayed 81 mg PO QAM 04/03/21 04/03/22 History release metformin 1,000 mg tablet 1,000 mg PO BID #180 tabs 06/09/21 04/03/22 Rx carvedilol 6.25 mg tablet 6.25 mg PO DAILY #90 tabs 09/04/21 04/03/22 Rx sitagliptin 50 mg tablet 50 mg PO QAM #90 tabs 09/04/21 04/03/22 Rx atorvastatin 40 mg tablet 40 mg PO DAILY #90 tabs 10/02/21 04/03/22 Rx betamethasone dipropionate 0.05 % 1 applic topical DAILY PRN skin 05/16/22 Rx topical cream irritation #15 grams glimepiride 2 mg tablet 2 mg PO QAM #90 tabs 06/15/22 Rx losartan 25 mg tablet 25 mg PO DAILY #30 tabs 06/18/22 Rx ticagrelor 90 mg tablet (Brilinta) 90 mg PO BID 1 month #60 tabs 06/18/22 Rx Allergies Allergy/AdvReac Type Severity Reaction Status Date / Time No Known Allergies Allergy Verified 04/03/22 14:54 Past Med/Surg History Medical History CAD (coronary artery disease) Non-obstructive Diabetes mellitus, type 2 NIDDM Hiatal hernia with GERD Hyperlipidemia Hypertension Incarcerated umbilical hernia Mild anemia Mild mitral stenosis Moderate aortic stenosis Obesity Proteinuria due to type 2 diabetes mellitus Surgical History H/O umbilical hernia repair (04/26/21) Open Incarcerated Umbilical Hernia Repair, with Mesh Dr. Mckeon 04-26-2021 History of ankle surgery Right ankle (2018) History of appendectomy 1950 History of cataract surgery R/L Hx of vasectomy S/P trigger finger release Family History Sister Cancer Brother Cancer Denies family history of Ovarian cancer Prostate cancer Myocardial infarction Breast cancer Colorectal cancer Social History Smoking Status: Never smoker Second Hand Exposure: No; Hx Alcohol Use: Yes Alcohol type: beer Hx Substance Use: No Preferred Language: Mohawk Communication Ability: Effective Visual Impairment: No Limitations Hearing Ability: Hard of Hearing Four Slide Machine Operator Required: No Beliefs That Will Affect Care: None marital status: / Current Living Situation: Alone Current Living Situation Comment: Lives alone current occupational status: retired How many Children do You have: 0 Feels Safe at Home: Yes Childhood Exposure to Second-Hand Smoke: No Diet Comment: regular caffeine: Yes during the past year weight has: remained stable Dental Care, Regularly: Yes Physical Activity Frequency: Daily Seatbelt Use: always Sunscreen Use: Yes Assistive Devices: None Review of Systems A total of 10 systems reviewed and were otherwise negative Physical Exam Vital Signs Vital Signs - 24 hr 06/17/22 01:46 06/17/22 01:49 06/17/22 02:13 Temperature 37.1 C Temperature Source Oral Pulse Rate 95 H 93 H Pulse Rate [Finger] Pulse Rhythm Regular Regular Pulse Rhythm [Finger] Pulse Strength Normal Pulse Strength [Finger] Respiratory Rate 20 Respiratory Effort / Characteristics Non-Labored Spontaneous Respiratory Depth Normal Respiratory Pattern Regular Blood Pressure 152/81 H Blood Pressure [Left Arm] Blood Pressure Mean 104 Blood Pressure Mean [Left Arm] Blood Pressure Position Lying Pulse Oximetry 98 95 Oxygen Delivery Method Room Air Room Air Room Air Sepsis Recent Fever Within 48 Hours No Sepsis New/Unexplained Change in Mental Status N/A Sepsis Action Taken by Nursing No Action Required 06/17/22 02:19 Temperature Temperature Source Pulse Rate Pulse Rate [Finger] 61 Pulse Rhythm Pulse Rhythm [Finger] Regular Pulse Strength Pulse Strength [Finger] Normal Respiratory Rate 22 Respiratory Effort / Characteristics Non-Labored Spontaneous Respiratory Depth Normal Respiratory Pattern Regular Blood Pressure Blood Pressure [Left Arm] 143/78 H Blood Pressure Mean Blood Pressure Mean [Left Arm] 99 Blood Pressure Position Pulse Oximetry 95 Oxygen Delivery Method Room Air Sepsis Recent Fever Within 48 Hours Sepsis New/Unexplained Change in Mental Status Sepsis Action Taken by Nursing VITALS: Vitals are noted on the nurse's note and reviewed by myself. Vital signs stable. GENERAL: Pleasant gentleman, in no acute distress, nondiaphoretic, well- developed well-nourished. SKIN: The skin was without rashes, erythema, edema, or bruising. There is no tenting of the skin. Capillary reflex less than 2 seconds. HEAD: Normocephalic atraumatic. EARS: External auditory canals clear, EYES: Pupils equal round and reactive to light and accommodation. Conjunctivae without injection, sclerae without icterus. Extraocular movements intact. NOSE: Patent, turbinates without inflammation or discharge. MOUTH: Mucous membranes moist. Pharynx without erythema or exudate. Uvula m idline. Airway patent. Tongue does not deviate. NECK: Supple without nuchal rigidity. No lymphadenopathy. No thyromegaly. Cervical spine is nontender. No JVD. HEART: Regular rate and rhythm LUNGS: Clear to auscultation bilaterally without wheezes, rales or rhonchi. No retractions or accessory muscle use. ABDOMEN: Positive bowel sounds x 4. Normal tympanic percussion. Soft, nontender, without masses or organomegaly. Doran sign negative. No guarding or rebound tenderness. No CVA tenderness MUSCULOSKELETAL: No muscle atrophy, erythema, or edema noted. NEURO: Patient was alert and oriented to person place and time. Normal sensation to light and sharp touch. No focal neurological deficits. Course Administered Medications Discontinued Medications Aspirin (Aspirin Chew 324 Mg) 324 mg PO NOW STA Stop: 06/17/22 01:54 Last Admin: 06/17/22 02:11 Dose: 324 mg Documented By: TERRI Aspirin (Aspirin 81 Mg Ectab) 81 mg PO QAM [facility] Stop: 07/17/22 08:59 Last Admin: 06/18/22 08:00 Dose: 81 mg Documented By: Admin: 06/17/22 09:25 Dose: 81 mg Documented By: SARAH Atorvastatin Calcium (Atorvastatin 40 Mg Tab) 40 mg PO DAILY [facility] Stop: 07/17/22 08:59 Last Admin: 06/18/22 07:59 Dose: 40 mg Documented By: Admin: 06/17/22 09:26 Dose: 40 mg Documented By: SARAH Carvedilol (Carvedilol 6.25 Mg Tab) 6.25 mg PO BID [facility] Stop: 07/17/22 08:59 Last Admin: 06/18/22 07:59 Dose: 6.25 mg Documented By: Admin: 06/17/22 21:08 Dose: 6.25 mg Documented By: Admin: 06/17/22 09:25 Dose: 6.25 mg Documented By: SARAH Clopidogrel Bisulfate (Clopidogrel Bisulfate 75 Mg Tab) 75 mg PO DAILY [facility] Stop: 07/17/22 08:59 Last Admin: 06/17/22 09:25 Dose: 75 mg Documented By: SARAH Fentanyl Citrate (Fentanyl Citrate 100 Mcg/2 Ml Vial) Confirm Administered Dose 100 mcg .ROUTE .STK-MED ONE Stop: 06/17/22 12:20 Last Admin: 06/17/22 17:48 Dose: Not Given Documented By: SARAH Fentanyl Citrate (Fentanyl Citrate 100 Mcg/2 Ml Vial) Confirm Administered Dose 100 mcg .ROUTE .STK-MED ONE Stop: 06/18/22 08:03 Last Admin: 06/18/22 12:44 Dose: Not Given Documented By: LEONID Heparin Sodium (Porcine) (Heparin Sod (Porcine) 1000 Unit/Ml) 1 units IV NOW ONE Stop: 06/17/22 03:08 Last Admin: 06/17/22 03:15 Dose: 7,000 units Documented By: TERRI Co-signed By: RINA Heparin Sodium (Porcine) (Heparin (Porcine) 1000 Unit/Ml 10 Ml (Intermediate Manager Use Only)) Confirm Administered Dose 10,000 units .ROUTE .STK-MED ONE Stop: 06/17/22 12:19 Last Admin: 06/17/22 17:47 Dose: Not Given Documented By: SARAH Heparin Sodium (Porcine) (Heparin (Porcine) 1000 Unit/Ml 10 Ml (Intermediate Manager Use Only)) Confirm Administered Dose 10,000 units .ROUTE .STK-MED ONE Stop: 06/18/22 08:03 Last Admin: 06/18/22 12:44 Dose: Not Given Documented By: LEONID Heparin Sodium/Dextrose (Heparin Iv Adult Wt-Based Standard With Bolus Protocol) 1 each IV NOW STA; Protocol Stop: 06/17/22 02:53 Last Admin: 06/17/22 11:46 Dose: Not Given Documented By: SARAH Heparin Sodium/Sodium Chloride (Heparin In Nss Infusion 1000 Unit/500 Ml (2 U/Ml) Bag) Confirm Administered Dose 3,000 units IV .STK-MED ONE Stop: 06/17/22 12:20 Last Admin: 06/17/22 17:48 Dose: Not Given Documented By: SARAH Heparin Sodium/Sodium Chloride (Heparin In Nss Infusion 1000 Unit/500 Ml (2 U/Ml) Bag) Confirm Administered Dose 3,000 units IV .STK-MED ONE Stop: 06/18/22 08:03 Last Admin: 06/18/22 12:45 Dose: Not Given Documented By: LEONID Heparin Sodium/Dextrose (Heparin Sodium/Dextrose) 25,000 units in 500 mls @ 0 mls/hr IV .Q0M [facility]; Protocol Stop: 07/17/22 03:14 Last Titration: 06/17/22 18:55 Dose: 0 units/hr, 0 mls/hr Documented By: SARAH Co-signed By: BRENDA Titration: 06/17/22 10:52 Dose: 0 units/hr, 0 mls/hr Documented By: SARAH Co-signed By: LIANA Titration: 06/17/22 07:04 Dose: 1,500 units/hr, 30 mls/hr Documented By: BRENDA Co-signed By: SARAH Admin: 06/17/22 03:16 Dose: 1,500 units/hr, 30 mls/hr Documented By: TERRI Co-signed By: BAW Insulin Aspart (Insulin Aspart Per Unit) 0 units SC ACHS [facility] Stop: 07/17/22 07:29 Last Admin: 06/18/22 12:42 Dose: 9 units Documented By: LEONID Co-signed By: KIERA Admin: 06/18/22 08:20 Dose: 4 units Documented By: LEONID Co-signed By: PAVEL Admin: 06/17/22 21:42 Dose: Not Given Documented By: Admin: 06/17/22 17:23 Dose: 9 units Documented By: SARAH Co-signed By: KIERA Admin: 06/17/22 14:49 Dose: 7 units Documented By: SARAH Co-signed By: HILDA Admin: 06/17/22 09:24 Dose: 3 units Documented By: SARAH Co-signed By: KIERA Isosorbide Mononitrate (Isosorbide [place] Extended Rel 30 Mg Tabcr) 30 mg PO DAILY [facility] Stop: 07/17/22 08:59 Last Admin: 06/18/22 08:00 Dose: 30 mg Documented By: Admin: 06/17/22 09:25 Dose: 30 mg Documented By: SARAH Midazolam HCl (Midazolam Hcl 1 Mg/Ml 2ml Vial) Confirm Administered Dose 2 mg .ROUTE .STK-MED ONE Stop: 06/17/22 12:20 Last Admin: 06/17/22 17:48 Dose: Not Given Documented By: SARAH Midazolam HCl (Midazolam Hcl 1 Mg/Ml 2ml Vial) Confirm Administered Dose 2 mg .ROUTE .STK-MED ONE Stop: 06/18/22 08:03 Last Admin: 06/18/22 12:45 Dose: Not Given Documented By: LEONID Morphine Sulfate (Morphine Sulfate 2 Mg/Ml Carp) 2 mg IV NOW STA Stop: 06/17/22 03:15 Last Admin: 06/17/22 03:22 Dose: 2 mg Documented By: TERRI Morphine Sulfate (Morphine Sulfate 2 Mg/Ml Carp) 2 mg IV Q30M PRN PRN Reason: Chest Pain Stop: 07/01/22 04:38 Last Admin: 06/17/22 11:07 Dose: 2 mg Documented By: SARAH Nicardipine HCl (Nicardipine Hcl Inj 2.5 Mg/Ml 10 Ml Amp) Confirm Administered Dose 25 mg .ROUTE .STK-MED ONE Stop: 06/17/22 12:19 Last Admin: 06/17/22 17:47 Dose: Not Given Documented By: SARAH Nicardipine HCl (Nicardipine Hcl Inj 2.5 Mg/Ml 10 Ml Amp) Confirm Administered Dose 25 mg .ROUTE .STK-MED ONE Stop: 06/18/22 08:03 Last Admin: 06/18/22 12:45 Dose: Not Given Documented By: LEONID Nitroglycerin (Nitroglycerin Sl 0.4 Mg/Tab Tab) 0.4 mg SL NOW STA Stop: 06/17/22 01:54 Last Admin: 06/17/22 02:12 Dose: 0.4 mg Documented By: TERRI Nitroglycerin (Nitroglycerin 2% Ointment 30gm Tube) Confirm Administered Dose 18 inch .ROUTE .STK-MED ONE Stop: 06/17/22 11:01 Last Admin: 06/17/22 11:46 Dose: Not Given Documented By: SARAH Nitroglycerin/Dextrose (Nitroglycerin/D5w 100mcg/Ml 20ml Syr) Confirm Administered Dose 2,000 mcg .ROUTE .STK-MED ONE Stop: 06/17/22 12:20 Last Admin: 06/17/22 17:48 Dose: Not Given Documented By: SARAH Nitroglycerin/Dextrose (Nitroglycerin/D5w 100mcg/Ml 20ml Syr) Confirm Administered Dose 2,000 mcg .ROUTE .STK-MED ONE Stop: 06/18/22 08:03 Last Admin: 06/18/22 12:45 Dose: Not Given Documented By: LEONID Ticagrelor (Ticagrelor 90 Mg Tab) 90 mg PO BID [facility] Stop: 07/18/22 08:59 Last Admin: 06/18/22 07:59 Dose: 90 mg Documented By: LEONID Ticagrelor (Ticagrelor 90 Mg Tab) 180 mg PO 1321 [facility] Stop: 06/17/22 16:00 Last Admin: 06/17/22 15:04 Dose: 180 mg Documented By: SARAH Ticagrelor (Ticagrelor 90 Mg Home Pack) 1 each PO NOW ONE Stop: 06/18/22 16:31 Last Admin: 06/18/22 18:00 Dose: 1 each Documented By: LEONID Critical Care Time I have personally spent 35 minutes of critical care time in the direct ma nagement of this patient. This includes bedside care, interpretation of diagnostic studies, and testing, discussion with consultants, patient, and family members, and other required patient management activities. This 35 minutes is in excess of all separately billable procedures. Medical Decision Making Medical Records Attestation: I reviewed the patient's medical records. Home Medications Current Medication List: was personally reviewed by me Laboratory Data Attestation: I reviewed the patient's lab results. Result diagrams: 06/18/22 05:19 06/18/22 05:19 Lab Results 06/17/22 06/17/22 06/17/22 Range/Units 01:21 01:21 01:21 WBC 7.62 (4.8-10.8) K/ul RBC 3.94 L (4.63-6.08) M/uL Hgb 12.4 L (14.0-18.0) g/dl Hct 36.0 L (40.1-51.0) % MCV 91.4 (80.0-100.0) fL MCH 31.5 (25.0-34.0) pg MCHC 34.4 (32.0-36.0) g/dL RDW Std Deviation 41.9 (36.4-46.3) fL RDW Coeff of Deidre 12.6 (11.5-14.5) % Plt Count 225 (130-400) K/uL MPV 11.4 (9.4-12.4) fL Immature Gran % (Auto) 0.3 % Neut % (Auto) 56.4 % Lymph % (Auto) 32.0 % [place] % (Auto) 10.1 % Eos % (Auto) 0.5 % Baso % (Auto) 0.7 % Neut # (Auto) 4.30 (1.4-6.5) K/uL Lymph # (Auto) 2.44 (1.2-3.4) K/uL [place] # (Auto) 0.77 (0.24-0.82) K/uL Eos # (Auto) 0.04 (0-0.50) K/uL Baso # (Auto) 0.05 (0-0.2) K/uL Immature Gran # (Auto) 0.02 (0.00-0.02) K/uL PT 11.0 (9.0-12.0) Seconds INR 1.0 (0.9-1.1) APTT 27.7 (21.0-31.0) Seconds PTT Ratio 1.0 Sodium 138 (136-145) mmol/L Potassium 4.2 (3.5-5.1) mmol/L Chloride 104 (98-107) mmol/L Carbon Dioxide 26 (21-32) mmol/L Anion Gap 8 (3-11) BUN 11 (6-23) mg/dl Creatinine 0.61 (0.6-1.4) mg/dl Est Cr Clr Drug Dosing 101.0 ml/min Est GFR ( Amer) 104.8 ml/min Est GFR (Non-Af Amer) 90.4 ml/min BUN/Creatinine Ratio 18.0 (10-20) Glucose 249 H (70-99(Fasting)) mg/dl Calcium 9.0 (8.5-10.1) mg/dl Total Bilirubin 0.9 (0.2-1.0) mg/dl AST 51 H (13-39) U/L ALT 21 (7-52) U/L Alkaline Phosphatase 76 (34-104) U/L Troponin I High Sens 1623.6 H* (0-20) pg/ml Total Protein 7.0 (6.0-8.3) gm/dl Albumin 4.4 (3.4-5.0) gm/dl Globulin 2.6 (2.5-4.0) gm/dl Albumin/Globulin Ratio 1.7 (0.9-2) Lipase 62 (11-82) U/L SARS-CoV-2, RNA, NAAT (NEGATIVE) 06/17/22 Range/Units 02:46 WBC (4.8-10.8) K/ul RBC (4.63-6.08) M/uL Hgb (14.0-18.0) g/dl Hct (40.1-51.0) % MCV (80.0-100.0) fL MCH (25.0-34.0) pg MCHC (32.0-36.0) g/dL RDW Std Deviation (36.4-46.3) fL RDW Coeff of Deidre (11.5-14.5) % Plt Count (130-400) K/uL MPV (9.4-12.4) fL Immature Gran % (Auto) % Neut % (Auto) % Lymph % (Auto) % [place] % (Auto) % Eos % (Auto) % Baso % (Auto) % Neut # (Auto) (1.4-6.5) K/uL Lymph # (Auto) (1.2-3.4) K/uL [place] # (Auto) (0.24-0.82) K/uL Eos # (Auto) (0-0.50) K/uL Baso # (Auto) (0-0.2) K/uL Immature Gran # (Auto) (0.00-0.02) K/uL PT (9.0-12.0) Seconds INR (0.9-1.1) APTT (21.0-31.0) Seconds PTT Ratio Sodium (136-145) mmol/L Potassium (3.5-5.1) mmol/L Chloride (98-107) mmol/L Carbon Dioxide (21-32) mmol/L Anion Gap (3-11) BUN (6-23) mg/dl Creatinine (0.6-1.4) mg/dl Est Cr Clr Drug Dosing ml/min Est GFR ( Amer) ml/min Est GFR (Non-Af Amer) ml/min BUN/Creatinine Ratio (10-20) Glucose (70-99(Fasting)) mg/dl Calcium (8.5-10.1) mg/dl Total Bilirubin (0.2-1.0) mg/dl AST (13-39) U/L ALT (7-52) U/L Alkaline Phosphatase (34-104) U/L Troponin I High Sens (0-20) pg/ml Total Protein (6.0-8.3) gm/dl Albumin (3.4-5.0) gm/dl Globulin (2.5-4.0) gm/dl Albumin/Globulin Ratio (0.9-2) Lipase (11-82) U/L SARS-CoV-2, RNA, NAAT NEGATIVE (NEGATIVE) Imaging Data Attestation: I personally reviewed and interpreted this imaging study as follows: MDM Narrative Prior records/ancillary studies reviewed. Triage Nursing notes reviewed. Additional history obtained from EMS. The patient's history was concerning for chest pain. Differential diagnosis: Etiologies such as cardiac ischemia, aortic dissection, pulmonary embolism, pn eumonia, pneumothorax, musculoskeletal, infections, pericarditis, myocarditis, esophageal rupture, gastrointestinal, as well as others were entertained. Physical examination: As above. ER treatment provided: An order was placed for continuous cardiac monitoring. The monitor shows a rate of 60-100 with a sinus rhythm. Aspirin and nitroglycerin On reassessment the patient felt better. Diagnostic interpretation by me: #1 the electrocardiogram was ordered for chest pain EKG: Normal sinus, normal intervals, Minimal ST depression in 1 and aVL, rate of 94. EKG compared to prior EKG with normal sinus rhythm new ST depressions in lead I and aVL interpreted by myself. I think arrhythmia is unlikely. EKG shows normal sinus rhythm with no interval abnormalities such as QT prolongation or WPW. There are no findings to suggest Brugada syndrome. Cardiac monitoring in the emergency department reveals no tachycardic or bradycardic dysrhythmia. Hypertrophic cardiomyopathy was considered but there are no clear historical elements pointing toward this. EKG is not suggestive. The QRS voltage is not extremely large and there are no suggestive Q waves. #2 EKG ordered for ongoing chest pain EKG: Normal sinus, normal intervals,Minimal ST depression in 1 and aVL, occasional PVC. EKG compared to prior EKG with normal sinus rhythm new ST depressions in lead I and aVL interpreted by myself. I think arrhythmia is unlikely. EKG shows normal sinus rhythm with no interval abnormalities such as QT prolongation or WPW. There are no findings to suggest Brugada syndrome. Cardiac monitoring in the emergency department reveals no tachycardic or bradycardic dysrhythmia. Hypertrophic cardiomyopathy was considered but there are no clear historical elements pointing toward this. EKG is not suggestive. The QRS voltage is not extremely large and there are no suggestive Q waves. #3 EKG ordered for chest pain and positive troponin EKG: Normal sinus, normal intervals, minimal ST elevation in V1, impression normal sinus rhythm with ST changes interpreted by myself I think arrhythmia is unlikely. EKG shows normal sinus rhythm with no interval abnormalities such as QT prolongation or WPW. There are no findings to suggest Brugada syndrome. Cardiac monitoring in the emergency department reveals no tachycardic or bradycardic dysrhythmia. Hypertrophic cardiomyopathy was considered but there are no clear historical elements pointing toward this. EKG is not suggestive. The QRS voltage is not extremely large and there are no suggestive Q waves. The labs revealed elevated troponin concerning for NSTEMI. Repeat troponin was ordered Imaging studies: Chest x-ray with no acute consolidation, pneumothorax or free air per my interpretation HEART SCORE: Hx: high/mod/low suspicion: 2 ECG: ST depression/nonspecific changes/normal: 1 Age: Greater than 65/45-64/less than 45:2 Risk factors: (Hypertension, hyperlipidemia, diabetes, coronary disease, tobacco use, cocaine use):2 Troponin: Greater than 2 times normal limits/1-2 times normal limits/normal: 2 Total: 9 Consultation: A consultation was placed with the hospitalist. The case was discussed and diagnostics were reviewed. The patient was evaluated in the ER for further treatment. Exam and history seem consistent with NSTEMI. Patient was given heparin. He denies any recent trauma or GI bleeding. This was reviewed with the admitting doctor. Serial EKGs showed no ST elevation LA. Patient felt slightly better after the nitroglycerin. Medicine is consulted. He will be admitted to their service. Patient was reassessed multiple times. He was improving throughout his stay. By the evaluation outlined above emergent etiologies such as aortic dissection, pulmonary embolism, pneumonia, pneumothorax, infections, pericarditis, myocarditis, gastrointestinal, as well as others were deemed relatively unlikely. The pt informed about the findings as listed above. All questions were answered and pleased with the treatment. The chart was completed utilizing [employer] Speech voice recognition software. Grammatical errors, random word insertions, pronoun errors, and incomplete sentences are an occassional consequence of this system due to software limitations, ambient noise, and hardware issues. Any formal questions or concerns about the content, text, or information contained within the body of this dictation should be directly addressed to the physician retail assistant store manager for clarification. Impression & Plan Acute non-ST elevation myocardial infarction (NSTEMI), Mild anemia, CAD (coronary artery disease) Discharge Plan Visit Data Chief Complaint: Chest Pain ED Provider: Patrick Santana ED Midlevel Provider: Elvia Roy Discharge Problem: Acute non-ST elevation myocardial infarction (NSTEMI), Mild anemia, CAD (coronary artery disease) Patient Disposition: Admitted As Inpatient Condition: Fair Discharge Instructions Interventions: ED Discharge Assessment Last Done: 06/17/22 04:31 Addendum June 19, 2022 01:27 HPI: The patient is an 87-year-old gentleman with a past medical history of CAD with history of PCI in January of this year who presents emergency department for evaluation of exertional chest pain. A/P: EKG did not demonstrate overt acute ischemia. Initial troponin 1600. WBC and platelets within normal limits. H/H similar to prior. Chemistry without metabolic acidosis. Renal function is normal. Patient was treated with aspirin and heparin ordered. Patient admitted for NSTEMI. I was consulted by the Advanced Practice Provider.I performed a substantive portion of the visit.This includes aspects of the HPI, MDM, diagnostic interpretations, and disposition/plan. I discussed the case with the NGOZI, examined the patient, and agree with the findings and plan as documented in NGOZI Kirill's note.
[2022-06-17 02:05] LABS: Basophils # (auto) 0.05 K/uL (0-0.2); Basophils % (auto) 0.7 %; Eosinophils # (auto) 0.04 K/uL (0-0.50); Eosinophils % (auto) 0.5 %; Hemoglobin 12.4 g/dl (14.0-18.0); Immature Granulocytes # (auto) 0.02 K/uL (0.00-0.02); Immature Granulocytes % (auto) 0.3 %; Lymphocytes # (auto) 2.44 K/uL (1.2-3.4); Mean Corpuscular Hemoglobin 31.5 pg (25.0-34.0); Mean Corpuscular Hgb Conc 34.4 g/dL (32.0-36.0); Mean Corpuscular Volume 91.4 fL (80.0-100.0); Mean Platelet Volume 11.4 fL (9.4-12.4); Monocytes # (auto) 0.77 K/uL (0.24-0.82); Monocytes % (auto) 10.1 %; Neutrophils % (auto) 56.4 %; Platelet Count 225 K/uL (130-400); RDW Coefficient of Variation 12.6 % (11.5-14.5); RDW Standard Deviation 41.9 fL (36.4-46.3); Red Blood Count 3.94 M/uL (4.63-6.08); White Blood Count 7.62 K/ul (4.8-10.8)
[2022-06-17 02:37] LABS: Albumin Globulin Ratio 1.7 (0.9-2); Albumin Level 4.4 gm/dl (3.4-5.0); Bilirubin,Total 0.9 mg/dl (0.2-1.0); Est GFR (African American) 104.8 ml/min; Est GFR (Non-African American) 90.4 ml/min; Globulin 2.6 gm/dl (2.5-4.0); Potassium 4.2 mmol/L (3.5-5.1)
[2022-06-17 02:42] LABS: Troponin I High Sensitivity 1623.6 pg/ml (0-20)
[2022-06-17] MEDS ORDERED: Heparin IV Adult Wt-Based Standard WITH Bolus Protocol IV STA (02:52)
--- NOTE | 2022-06-17 02:58 | History & Physical Report ---
Date of Service June 17, 2022 Assessment & Plan (1) Angina pectoris, unspecified: Plan: Patient with accelerated chest pain. Known history of coronary disease on dual antiplatelet therapy with previous LAD drug-eluting stent placed in December 2021. His elevation of his high-sensitivity troponin on presentation. Patient will be maintained on carvedilol aspirin and heparin drip. Oxygen, isosorbide will be continued of note his carvedilol is once a day we will make this twice daily cardiology consult be undertaken. Additional high-sensitivity troponin will be done in the morning along with an echocardiogram. (2) Aortic stenosis: Plan: This is mild on the echocardiogram performed April 03, 2022. At that time his EF was 65 to 70% with no regional wall motion abnormalities (3) Diabetes mellitus, type 2: Plan: Patient typically on Sitagliptin, metformin and glimepiride these will be held in favor of sliding scale insulin at this time Plan Therapeutic heparin drip will be his DVT prevention at this time History of Present Illness Primary Care Provider: Jerome Crum MD 87-year-old male with accelerated exertional chest discomfort who presents tonight due to his pain being unremitting. 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 Then on Saturday 1 day prior to admission he had intermittent discomfort through the day which was definitely exertional in nature. Evening of admission his chest pain was relieved by rest but then when he got up to go to the bathroom and melanotic came back and was more significant and he subsequently presented to the emergency department. Patient had a PCI with LAD drug-eluting stent in December 2021. He is not have mild to moderate aortic stenosis. He is followed by Dr. Gibbs. He is diabetic. His pain improved with nitrates but did not completely resolve Emergency department he is not on acute EKG with a high-sensitivity troponin of 1500. There is mild ST elevation in lead V1 but this appears to be isolated Allergies Allergy/AdvReac Type Severity Reaction Status Date / Time No Known Allergies Allergy Verified 04/03/22 14:54 Home Medications Medication Instructions Recorded Confirmed Type [id number]-efa-fshom acid 0.4 1 tab PO QAM 07/14/19 04/03/22 History mg-lycopene 300 mcg-lutein 250 mcg tablet (Centrum Silver) blood sugar diagnostic (OneTouch #200 ea 02/22/21 01/29/22 Rx Verio test strips) Glucocil Otc 2 tab PO UD 04/03/21 04/03/22 History aspirin 81 mg tablet,delayed 81 mg PO QAM 04/03/21 04/03/22 History release metformin 1,000 mg tablet 1,000 mg PO BID #180 tabs 06/09/21 04/03/22 Rx carvedilol 6.25 mg tablet 6.25 mg PO DAILY #90 tabs 09/04/21 04/03/22 Rx sitagliptin 50 mg tablet 50 mg PO QAM #90 tabs 09/04/21 04/03/22 Rx atorvastatin 40 mg tablet 40 mg PO DAILY #90 tabs 10/02/21 04/03/22 Rx clopidogrel 75 mg tablet 75 mg PO DAILY #30 tabs 12/27/21 04/03/22 Rx isosorbide mononitrate 60 mg 30 mg PO DAILY 04/03/22 History tablet,extended release 24 hr betamethasone dipropionate 0.05 % 1 applic topical DAILY PRN skin 05/16/22 Rx topical cream irritation #15 grams glimepiride 2 mg tablet 2 mg PO QAM #90 tabs 06/15/22 Rx Past Med/Surg History Medical History CAD (coronary artery disease) Non-obstructive Diabetes mellitus, type 2 NIDDM Hiatal hernia with GERD Hyperlipidemia Hypertension Incarcerated umbilical hernia Mild anemia Mild mitral stenosis Moderate aortic stenosis Obesity Proteinuria due to type 2 diabetes mellitus Surgical History H/O umbilical hernia repair (04/26/21) Open Incarcerated Umbilical Hernia Repair, with Mesh Dr. Mckeon 04-26-2021 History of ankle surgery Right ankle (2018) History of appendectomy 1950 History of cataract surgery R/L Hx of vasectomy S/P trigger finger release Family History Sister Cancer Brother Cancer Denies family history of Ovarian cancer Prostate cancer Myocardial infarction Breast cancer Colorectal cancer Social History Smoking Status: Never smoker Second Hand Exposure: No; Hx Alcohol Use: Yes Alcohol type: beer, wine and hard liquor Hx Substance Use: No Preferred Language: Belarusian Communication Ability: Effective Visual Impairment: No Limitations Hearing Ability: Hard of Hearing Bar Welder Required: No Beliefs That Will Affect Care: None marital status: / Current Living Situation: Significant Other Current Living Situation Comment: Lives alone current occupational status: retired How many Children do You have: 0 Feels Safe at Home: Yes Childhood Exposure to Second-Hand Smoke: No Diet Comment: regular caffeine: Yes during the past year weight has: remained stable Dental Care, Regularly: Yes Physical Activity Frequency: Daily Seatbelt Use: always Sunscreen Use: Yes Assistive Devices: Denture - Upper and Denture - Lower Review of Systems Review of Systems: Mild distress and fatigue no headache, no visual changes no speech or swallowing issues Substernal chest pain and pressure without radiation or associated symptoms no shortness of breath, cough or wheezes (despite chest x-ray changes) no abdominal pain, nausea or vomiting, diarrhea or constipation no dysuria, hematuria or frequency no focal joint pain or swelling no back pain, CVA tenderness or radicular pain no bruising, bleeding or rashes no focal signs of weakness or numbness or altered sensation no complaints of anxiety or depression.. Physical Exam Physical Exam: The patient appeared well nourished and normally developed. Vital signs as documented. Head exam is normocephalic atraumatic Neck is without JVD, thyromegaly, or carotid bruits. Lungs are clear to auscultation,, despite chest x-ray changes) no focal loss of breath sounds Cardiac exam, Rhythm is regular.. No murmurs, rubs or gallops. Abdominal exam reveals normal bowel sounds, soft non tender, no masses Extremities are trace edematous and both pedal pulses are present Neurologic exam is alert and oriented, no focal loss of strength or sensation Skin is without bruises or rashes Psychologically is with concerns for anxiety Results & Data Results & Data ([facility]) Vital Signs (Past 12 Hours) Vital Signs Temp Pulse Pulse Resp BP BP Pulse Ox 06/17/22 02:19 61 22 143/78 H 95 06/17/22 02:13 93 H 95 06/17/22 01:49 09/25/22 01:46 98.8 F 95 H 20 152/81 H 98 O2 Del Method 06/17/22 02:19 Room Air 06/17/22 02:13 Room Air 06/17/22 01:49 Room Air 06/17/22 01:46 Room Air Diagnostic Findings Chest x-ray appears to be slightly volume overloaded ECG Additional Comments: EKG is sinus mechanism without acute ST or T wave changes with exception of isolated elevation in V1 however this may be lead reversal as R wave progression does not follow consistent pattern PG Care Time/CCT Total # of Minutes Spent Total Time Spent with Patient: Total time spent is greater than 50% in coordination of care (as documented) at patient's floor/unit and/or counseling patient: Coding Level of Care Code 60718 Initial Inpt Care Lvl 3 Diagnoses Angina pectoris, unspecified I20.9 Aortic stenosis I35.0 Diabetes mellitus, type 2 E11.9 Diabetes mellitus complication status: without complication Diabetes mellitus intermediate manager insulin use: without intermediate manager use (1) Diabetes mellitus, type 2 Diabetes mellitus complication status: without complication Diabetes mellitus intermediate manager insulin use: without nursing home use Qualified Code(s): E11.9 - Type 2 diabetes mellitus without complications
[2022-06-17] MEDS ORDERED: HEPARIN SOD (PORCINE) 1000 UNIT/ML IV ONE (03:07)
[2022-06-17] MEDS ORDERED: MoRPHine SULFATE 2 MG/ML CARP IV STA (03:14)
[2022-06-17] MEDS ORDERED: HEPARIN SODIUM/DEXTROSE 25,000 UNITS/500 ML BAG IV SCH (03:15)
[2022-06-17 03:28] LABS: Partial Thromboplastin Time 27.7 Seconds (21.0-31.0)
[2022-06-17] MEDS ORDERED: NITROGLYCERIN SL 0.4 MG/TAB TAB SL PRN (04:39)
[2022-06-17] MEDS ORDERED: ALUMINUM/MAGNESIUM SUSP 30 ML UDC PO PRN (04:39)
[2022-06-17] MEDS ORDERED: ACETAMINOPHEN 325 MG TAB PO PRN (04:39)
[2022-06-17] MEDS ORDERED: GLUCOSE 10 TAB/TUBE PO PRN (04:39)
[2022-06-17] MEDS ORDERED: DEXTROSE 50% 50 ML SYRINGE IV PRN (04:39)
[2022-06-17] MEDS ORDERED: MoRPHine SULFATE 2 MG/ML CARP IV PRN (04:39)
[2022-06-17] MEDS ORDERED: CARBOHYDRATES FOR HYPOGLYCEMIA PO PRN (04:39)
[2022-06-17] MEDS ORDERED: ONDANSETRON INJ 2 MG/ML 2 ML VIAL IV PRN (04:39)
[2022-06-17] MEDS ORDERED: GLUCAGON FOR INJ 1 MG VIAL SQ PRN (04:39)
[2022-06-17] MEDS ORDERED: GLUCOSE 40% GEL 15 GM TUBE PO PRN (04:39)
--- NOTE | 2022-06-17 06:44 | Hospitalist Progress Note ---
Date of Service June 17, 2022 Assessment & Plan (1) Acute non-ST elevation myocardial infarction (NSTEMI): Plan: Misha is a 87 y/o male with accelerated exertional chest discomfort who presents tonight due to his pain being unremitting. 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 Then on Saturday 1 day prior to admission he had intermittent discomfort through the day which was definitely exertional in nature. Evening of admission his chest pain was relieved by rest but then when he got up to go to the bathroom and melanotic came back and was more significant and he subsequently presented to the emergency department. He states the chest pain was in the center of his chest and did not radiate to arm/jaw. He has received nitro and morphine which improved the pain but it was still present. PMH includes aortic stenosis, type 2 diabetes, LAD drug-eluting stent in December 2021 (follows with Dr. Gibbs). Acute Non-ST Elevation Myocardial Infarction -Serial EKGs did not show acute ST elevations -High sensitivity troponin 1623-->64187, aPTT:>139, 70.6 -Echo showed new moderately reduced EF (35-40%), new segmental wall motion abnormalities (EF was 65 to 70% with no regional wall motion abnormalities in April 13) -Intervential cardiology consult placed, Dr. Ashraf examined patient and took patient to manager cardiac cath -Catheterization completed: re-stenosis noted of LAD stent, successful PCI -continue b jolanta, statin, aspirin and plavix Type 2 Diabetes Mellitus -At home takes Sitagliptin, metformin and glimepiride -Will be on sliding scale insulin during admission Diet: Carb consistent DVT PPx: Heparin Code Status: Full Code (2) Angina pectoris, unspecified: (3) Aortic stenosis: (4) Diabetes mellitus, type 2: Admission and Anticipated Discharge Date Admission Date: June 17, 2022 Supervising Physician Co-Signing Physician Notes Resident Physician Supervision Note: I independently interviewed and examined the patient and verified the prado history and physical, reviewed labs and image studies and agree with resident findings and care plan. Patient seen this am. had persistent chest pain. general - mild distress heart - RRR lungs - CTA troponin check with rise to 14k from 1500. recheck ekg with 2 mm elevation in V1 and 1 mm elevation in V2. no contiguous ST depression. applied nitro paste and given 2mgs IV morphine. continued heparin drip. spoke to Dr. Ashraf who came and evaluated the patient. Heart alert called and patient taken to manager cardiac cath. Total critical care time spent 35 min Subjective Patient was seen and examined at bedside. Misha was resting in his bed at time of encounter. He states that was still having chest pain in the center of his chest, denied any radiation of pain down his arm or up to his jaw. He notes that the pain began on and the pain would come and go. Notes that since last night, the pain has worsened and has now been constant. Denies any shortness or breath or increased chest pain with exercise, denies nausea/vomiting. Review of Systems Review of Systems: As per HPI Physical Exam Constitutional: WD/WN, vitals as above Neck: trachea midline, no thyromegaly Respiratory: normal respiratory effort, lungs clear to auscultation Cardiovascular: regular rate and rhythm Gastrointestinal (Abdomen): normal bowel sounds, soft, nontender, no hepatosplenomegaly Skin: no rashes, warm and dry Psychiatric: A+Ox3, euthymic affect Results & Data Results & Data ([facility]) Vital Signs (Past 12 Hours) Vital Signs Temp Pulse Pulse Resp BP BP Pulse Ox 06/17/22 04:39 79 06/17/22 04:48 36.3 C L 80 18 155/88 H 98 06/17/22 04:39 36.3 C L 80 18 155/88 H 98 06/17/22 04:07 81 16 166/88 H 95 06/17/22 02:19 61 22 143/78 H 95 06/17/22 02:13 93 H 95 06/17/22 01:49 06/17/22 01:46 37.1 C 95 H 20 152/81 H 98 O2 Del Method 06/17/22 04:39 06/17/22 04:48 Room Air 06/17/22 04:39 Room Air 06/17/22 04:07 Room Air 06/17/22 02:19 Room Air 06/17/22 02:13 Room Air 06/17/22 01:49 Room Air 06/17/22 01:46 Room Air Resident Activity Tracking Resident Involvement: Resident Care Provided Care Provided: Adult Hospital Medicine (1) Diabetes mellitus, type 2 Diabetes mellitus complication status: without complication Diabetes mellitus termite control servicer insulin use: without termite control servicer use Qualified Code(s): E11.9 - Type 2 diabetes mellitus without complications
[2022-06-17 07:24] LABS: BUN Creatinine Ratio 13.2 (10-20); Calcium 8.9 mg/dl (8.5-10.1); Creatinine Clr Calc Pharmacy 79.5 ml/min; Est GFR (African American) 95.7 ml/min; Est GFR (Non-African American) 82.6 ml/min; Magnesium 1.7 mg/dl (1.7-2.4); Potassium 4.5 mmol/L (3.5-5.1)
[2022-06-17 07:32] LABS: Troponin I High Sensitivity 14155.8 pg/ml (0-20)
--- NOTE | 2022-06-17 08:37 | XRay Report ---
SINGLE VIEW CHEST CLINICAL HISTORY: Atypical chest pain. FINDINGS: An AP, portable, upright chest radiograph is compared to study dated 01/10/2022. Correlation is made with abdominal CT dated 05/21/2017. The heart is enlarged noting atherosclerotic calcificatio n of the thoracic aorta. There is pulmonary vascular congestion. Findings suggest chronic interstitia l/fibrotic lung disease. This is similar to previous. Asymmetric airspace opacities are noted at the left lung base. No large pleural effusion or pneumothorax is seen. The skeletal structures are osteop enic. The bony thorax is grossly intact. IMPRESSION: 1. Cardiomegaly with pulmonary vascular congestion. 2. Findings suggest chronic interstitial/fibrotic lung disease. 3. Asymmetric airspace opacities are noted at the left lung base. This could represent scarring/atele ctasis versus a mild pneumonitis. Clinical correlation will be required. ACT 112: Negative or not required by law. Electronically signed by: Won Doyle M.D. 06/17/2022 8:36 AM
[2022-06-17] MEDS ORDERED: CLOPIDOGREL BISULFATE 75 MG TAB PO SCH (09:00)
[2022-06-17] MEDS: INSULIN ASPART PER UNIT SC SCH ×4 (09:24→21:42)
[2022-06-17] MEDS: ASPIRIN 81 MG ECTAB PO SCH (09:25)
[2022-06-17] MEDS: carvediloL 6.25 MG TAB PO SCH ×2 (09:25→21:08)
[2022-06-17] MEDS: ISOSORBIDE MONO EXTENDED REL 30 MG TABCR PO SCH (09:25)
[2022-06-17] MEDS: ATORVASTATIN 40 MG TAB PO SCH (09:26)
[2022-06-17 10:35] LABS: Partial Thromboplastin Ratio > 5.1
[2022-06-17 10:48] LABS: Partial Thromboplastin Time > 139.0 Seconds (21.0-31.0)
[2022-06-17] MEDS ORDERED: NITROGLYCERIN 2% OINTMENT 30GM TUBE ONE (11:00)
[2022-06-17] MEDS ORDERED: NITROGLYCERIN 2% OINTMENT 30GM TUBE EXT PRN (11:12)
--- NOTE | 2022-06-17 12:05 | Pre Anesthesia Assessment ---
Date of Service June 17, 2022 Pre Sedation Assessment Vital Signs Temp Pulse Pulse Resp BP BP Pulse Ox 06/17/22 11:49 36.8 C 58 L 14 102/62 06/17/22 08:51 75 06/17/22 06:58 36.4 C L 74 16 176/81 H 97 06/17/22 04:39 79 06/17/22 04:48 36.3 C L 80 18 155/88 H 98 06/17/22 04:39 36.3 C L 80 18 155/88 H 98 06/17/22 04:07 81 16 166/88 H 95 06/17/22 02:19 61 22 143/78 H 95 06/17/22 02:13 93 H 95 06/17/22 01:49 06/17/22 01:46 37.1 C 95 H 20 152/81 H 98 O2 Del Method 06/17/22 11:49 06/17/22 08:51 06/17/22 06:58 Room Air 06/17/22 04:39 06/17/22 04:48 Room Air 06/17/22 04:39 Room Air 06/17/22 04:07 Room Air 06/17/22 02:19 Room Air 06/17/22 02:13 Room Air 06/17/22 01:49 Room Air 06/17/22 01:46 Room Air Cardiovascular Additional Comments: RRR. S4, 3/6 SM. 1+ pulses no edema Respiratory normal respiratory effort, lungs clear to auscultation (No W/R/C) Pre-Sedation Airway Assessment Smoking Status: Never smoker Hx Sleep Apnea: No Hx Difficult Intubation: No Procedure Planning Contraindications for Sedation: none Notes The planned sedation has been discussed with the patient. Informed Consent was obtained. I have identified the patient, determined the appropriateness of sedation and have assessed the patient immediately prior to the procedure. All medicine(s) and interventions are by my order.
[2022-06-17] MEDS ORDERED: niCARdipine HCL INJ 2.5 MG/ML 10 ML AMP ONE (12:18)
[2022-06-17] MEDS ORDERED: HEPARIN (PORCINE) 1000 UNIT/ML 10 ML (CATH LAB USE ONLY) ONE (12:18)
[2022-06-17] MEDS ORDERED: fentaNYL citrate 100 MCG/2 ML VIAL ONE (12:19)
[2022-06-17] MEDS ORDERED: NITROGLYCERIN/D5W 100MCG/ML 20ML SYR ONE (12:19)
[2022-06-17] MEDS ORDERED: MIDAZOLAM HCL 1 MG/ML 2ML VIAL ONE (12:19)
--- NOTE | 2022-06-17 12:27 | Cardiology Consultation ---
Date of Consultation June 17, 2022 Assessment & Plan (1) Acute non-ST elevation myocardial infarction (NSTEMI): This may be a type II non-ST elevation SD with chronic total occlusion and labile/elevated blood pressures. However, given the echo findings I would be suspicious for new LAD occlusion since he had prior stenting to this area. Therefore, we are proceeding directly for definitive evaluation by coronary angiography plus or minus PCI as indicated. He shall continue aspirin 81 mg daily, Plavix 75 mg daily, carvedilol, and additional changes pending results of his catheterization. My suspicion is that he has subacute stent thrombosis. Present on Admission?: Yes (2) Aortic stenosis: This is stable. I have preliminary review of the echo. I will spend some time reviewing completely to assess severity of . At this time, its not an acute issue and we will continue as previously planned. (3) CAD (coronary artery disease): Known AMMONIUM NITRATE NEUTRALIZER, recent PCI with moderate circumflex disease also known. We will continue guideline directed medical therapy and dual antiplatelet therapy. Additional recommendations pending results of cath. Present on Admission?: Yes (4) Hypertension: Blood pressure has been labile. May be secondary to stress. Post catheterization will assess his medical regimen as well as his blood pressure and determine if additional titration is necessary. Present on Admission?: Yes (5) Hyperlipidemia: High risk. High intensity statin therapy recommended. He is on Lipitor 40 which we will continue. Present on Admission?: Yes (6) Ischemic cardiomyopathy: This is a new finding. When complete echo reviewed then I will have an exact EF range. If EF is less than 40, which I suspect, then we will need to add VIRGILIO inhibitor/ARB/Entresto as tolerated. If less than 35% then we will also recommend LifeVest. For now, no changes. Currently without any evidence of volume overload. Present on Admission?: Yes History of Present Illness Reason for Consultation: Elevated troponin, persistent chest pain despite medications Attending Physician: Zaida Huber MD History of Present Illness 87-year-old gentleman with a history of coronary artery disease and mild to moderate aortic stenosis presented for complaint of chest pain. Patient states he has been having chest pain since which he describes as heaviness and occasionally sharp. He did not come to the hospital seeking medical attention at that time because he felt it would go away. However, it did not go away and he continued to have symptoms with minimal exertion. Initial EKG and all subsequent EKGs failed to demonstrate acute ST elevations or reciprocal ischemic changes to suggest ACS. However, his cardiac troponin is markedly elevated. General cardiology was consulted. However, despite optimized medical therapy he has had persistent waxing and waning chest discomfort. An echocardiogram was performed and reviewed by myself. This demonstrated new wall motion abnormality in the LAD territory. He has a history of LAD stent as well as chronic total occlusion of the RCA and moderate disease in the circumflex. He denies any dyspnea at rest, syncope, near syncope, orthopnea, PND, racing heartbeat, palpitations, or edema. His last visit with cardiology was several months ago at which time he was doing relatively well. He does admit to some stable anginal symptoms with exertion when he was working in his yard in April but this always cleared with rest and/or nitroglycerin. Current symptoms have been relatively refractory to anything but protracted rest and minimal activity. Given all of these findings, I have suggested that definitive evaluation by coronary angiography is warranted at this time and he is willing to undergo cardiac catheterization. The risk benefits and alternatives were discussed with the patient. He voiced understanding and wished to proceed today. Allergies Allergy/AdvReac Type Severity Reaction Status Date / Time No Known Allergies Allergy Verified 04/03/22 14:54 Home Medications Medication Instructions Recorded Confirmed Type fpkexqkc-pcc-gncai acid 0.4 1 tab PO QAM 07/14/19 04/03/22 History mg-lycopene 300 mcg-lutein 250 mcg tablet (Centrum Silver) blood sugar diagnostic (OneTouch #200 ea 02/22/21 01/29/22 Rx Verio test strips) Glucocil Otc 2 tab PO UD 04/03/21 04/03/22 History aspirin 81 mg tablet,delayed 81 mg PO QAM 04/03/21 04/03/22 History release metformin 1,000 mg tablet 1,000 mg PO BID #180 tabs 06/09/21 04/03/22 Rx carvedilol 6.25 mg tablet 6.25 mg PO DAILY #90 tabs 09/04/21 04/03/22 Rx sitagliptin 50 mg tablet 50 mg PO QAM #90 tabs 09/04/21 04/03/22 Rx atorvastatin 40 mg tablet 40 mg PO DAILY #90 tabs 10/02/21 04/03/22 Rx clopidogrel 75 mg tablet 75 mg PO DAILY #30 tabs 12/27/21 04/03/22 Rx isosorbide mononitrate 60 mg 30 mg PO DAILY 04/03/22 History tablet,extended release 24 hr betamethasone dipropionate 0.05 % 1 applic topical DAILY PRN skin 05/16/22 Rx topical cream irritation #15 grams glimepiride 2 mg tablet 2 mg PO QAM #90 tabs 06/15/22 Rx Patient History Medical History CAD (coronary artery disease) Non-obstructive Diabetes mellitus, type 2 NIDDM Hiatal hernia with GERD Hyperlipidemia Hypertension Incarcerated umbilical hernia Mild anemia Mild mitral stenosis Moderate aortic stenosis Obesity Proteinuria due to type 2 diabetes mellitus Surgical History H/O umbilical hernia repair (04/26/21) Open Incarcerated Umbilical Hernia Repair, with Mesh Dr. Mckeon 04-26-2021 History of ankle surgery Right ankle (2018) History of appendectomy 1950 History of cataract surgery R/L Hx of vasectomy S/P trigger finger release Family History Sister Cancer Brother Cancer Denies family history of Ovarian cancer Prostate cancer Myocardial infarction Breast cancer Colorectal cancer Social History Smoking Status: Never smoker Second Hand Exposure: No; Hx Alcohol Use: Yes Alcohol type: beer Hx Substance Use: No Preferred Language: Tamazight Communication Ability: Effective Visual Impairment: No Limitations Hearing Ability: Hard of Hearing Kitchen Utility Associate Required: No Beliefs That Will Affect Care: None marital status: / Current Living Situation: Alone Current Living Situation Comment: Lives alone current occupational status: retired How many Children do You have: 0 Other Information That Helps Us Care for You: No Feels Safe at Home: Yes Safety Concerns: Feels Safe At This Time Childhood Exposure to Second-Hand Smoke: No Diet Comment: regular caffeine: Yes during the past year weight has: remained stable Dental Care, Regularly: Yes Physical Activity Frequency: Daily Seatbelt Use: always Sunscreen Use: Yes Assistive Devices: Denture - Upper and Denture - Lower Review of Systems Review of Systems: Negative x12 point review except as per HPI. Results & Data ([facility]) Vital Signs (Past 12 Hours) Vital Signs Temp Pulse Pulse Resp BP BP Pulse Ox 06/17/22 11:49 36.8 C 58 L 14 102/62 06/17/22 08:51 75 06/17/22 06:58 36.4 C L 74 16 176/81 H 97 06/17/22 04:39 79 06/17/22 04:48 36.3 C L 80 18 155/88 H 98 06/17/22 04:39 36.3 C L 80 18 155/88 H 98 06/17/22 04:07 81 16 166/88 H 95 06/17/22 02:19 61 22 143/78 H 95 06/17/22 02:13 93 H 95 06/17/22 01:49 06/17/22 01:46 37.1 C 95 H 20 152/81 H 98 O2 Del Method 06/17/22 11:49 06/17/22 08:51 06/17/22 06:58 Room Air 06/17/22 04:39 06/17/22 04:48 Room Air 06/17/22 04:39 Room Air 06/17/22 04:07 Room Air 06/17/22 02:19 Room Air 06/17/22 02:13 Room Air 06/17/22 01:49 Room Air 06/17/22 01:46 Room Air PG Care Time/CCT Total # of Minutes Spent Total Time Spent with Patient: Total time spent is greater than 50% in coordination of care (as documented) at patient's floor/unit and/or counseling patient: [place] [address] Inpt Consult Level 5 Patient Type New History Detailed Exam Detailed Medical Decision Making Moderate Complexity Diagnoses Acute non-ST elevation myocardial infarction (NSTEMI) I21.4 Aortic stenosis I35.0 CAD (coronary artery disease) I25.10 Hypertension I10 Hypertension type: essential hypertension Hyperlipidemia E78.2 Hyperlipidemia type: mixed hyperlipidemia Ischemic cardiomyopathy I25.5 (1) Hypertension Hypertension type: essential hypertension Qualified Code(s): I10 - Essential (primary) hypertension (2) Hyperlipidemia Hyperlipidemia type: mixed hyperlipidemia Qualified Code(s): E78.2 - Mixed hyperlipidemia
[2022-06-17 12:52] LABS: Partial Thromboplastin Ratio 2.6
[2022-06-17 13:13] LABS: Partial Thromboplastin Time 70.6 Seconds (21.0-31.0)
[2022-06-17] MEDS ORDERED: TICAGRELOR 90 MG TAB PO SCH (13:21)
[2022-06-17] MEDS ORDERED: TICAGRELOR 90 MG TAB PO ONE (13:21)
--- NOTE | 2022-06-17 13:29 | Post Anesthesia Assessment ---
Date of Service June 17, 2022 Post Sedation Assessment Vital Signs Temp Pulse Pulse Resp BP BP Pulse Ox 06/17/22 11:49 36.8 C 58 L 14 102/62 06/17/22 08:51 75 06/17/22 06:58 36.4 C L 74 16 176/81 H 97 06/17/22 04:39 79 06/17/22 04:48 36.3 C L 80 18 155/88 H 98 06/17/22 04:39 36.3 C L 80 18 155/88 H 98 06/17/22 04:07 81 16 166/88 H 95 06/17/22 02:19 61 22 143/78 H 95 06/17/22 02:13 93 H 95 06/17/22 01:49 06/17/22 01:46 37.1 C 95 H 20 152/81 H 98 O2 Del Method 06/17/22 11:49 06/17/22 08:51 06/17/22 06:58 Room Air 06/17/22 04:39 06/17/22 04:48 Room Air 06/17/22 04:39 Room Air 06/17/22 04:07 Room Air 06/17/22 02:19 Room Air 06/17/22 02:13 Room Air 06/17/22 01:49 Room Air 06/17/22 01:46 Room Air Recovery Score Activity: Moves 4 extremities Respiration: Deep Breath/Cough Circulation: +/-20% PreAnes Value Consciousness: Fully Awake Oxygen Saturation: > 92% On Room Air Discharge Sedation Level of Care: Phase I Post Sedation Plan On clinical assessment, the patient appears to have tolerated the sedation without complications. Patient is recovering as anticipated. Patient will continue to be monitored by nursing and may be discharged when sedation discharge criteria are met per below protocol. Upon Completions of procedure up to 15 minutes continue every 5 minute vital signs and the P.A.R. score; then discharge to a Phase I or Fast Track to Phase II per the following guidelines: * Discharge Patient to appropriate Phase II area if PAR is 8 or greater or return to pre- procedure baseline. The post - procedure orders will be as directed. * If PAR score is less than 8 or not return to pre-procedure baseline then patient will follow Phase I monitoring till PAR is reached for Phase II. The Phase I may be done in procedure room or may call to secure a Phase I area. * If naloxone or flumazenil are used for reversal, hold in Phase I for continued monitoring from when last reversal dose was given for a minimum of 60 minutes or longer pending the nurse and/or physician discretion of patient condition before discharge to Phase II. Please call the Sedation Physician to re-evaluate and complete post-note for discharge to Phase II area. Do NOT discharge from procedure sedation or Phase 1 until post- sedation evaluation note is complete by procedure /sedation MD Sedation Discharge Instructions to be given to the patient at discharge to home. [facility] Procedure Codes (Charges) Indication for Procedure Indication for procedure: NSTEMI Sedation/Anesthesia Procedure 1: Sedation/Anesthesia: 12039 Mod Sedation by the same physician;Init15 Min Child Age 5 & Up Total Sedation Time (minutes): 15 Procedure 2: Sedation/Anesthesia: 86313 Mod Sedation by the same physician; Ea [id number] Minutes
--- NOTE | 2022-06-17 13:46 | Cardiac Catheterization ---
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 Cardiac Status Clinical evaluation leading to the procedure CAD Presenation: Non STEMI Anginal Classification: CCS IV Heart Failure: No Cardiogenic Shock within 24 Hours: No Cardiac Arrest within 24 Hours: No Imaging Studies Past 6 Months: No STEMI OR Non-STEMI Symptom Onset Date: 06/14/22 Symptom Onset Time: 12:00 Thrombolytics: No Coronary Anatomy Dominant: Right Left Main (% Stenosis): Normal LAD (% Stenosis): Proximal (Mild) and Mid (99% stenosis combined thrombosis and in-stent restenosis) D1 (% Stenosis): Ostial (40%) Circumflex (% Stenosis): Proximal (50%, unchanged from prior) OM1 (% Stenosis): Normal (Mild diffuse) RCA (% Stenosis): Ostial (100% chronic) R PDA (% Stenosis): Normal (Mild) R PL1 (% Stenosis): Normal (Mild) Diagnostic Physicians Name: James Ashraf MD, PhD Closure Device Percutaneous Entry Location: Radial Recommendations: PCI without planned CABG PCI Indication: PCI for high risk Non-HERMAN Lesion Segment Name: Mid LAD Culprit Artery: Yes Stenosis Prior to Rx (%): 99 Chronic Total Occlusion: No Pre-Procedure MARYLIN Flow: 2 Previously Treated Lesion: Yes Lesion Complexity: Non-High/Non-C Lesion Length (mm): 12 mm Thrombus Present: Yes Bifurcation Lesion: No Guidewire Across Lesion: Yes Intraprocedure Events Significant Disection: No Perforation: No Cardiac Cath Procedure Full Procedure Date June 17, 2022 Pre-Procedure Diagnosis Pre-Procedure Diagnosis: Non STEMI AUC Score AUC Score: 7 Post-Procedure Diagnosis Post-Procedure Diagnosis: Severe CAD (Acute stent thrombosis.) and Successful PCI Procedure(s) Performed Procedure(s) Performed: Coronary Angiography, Left Heart Cath and PTCA Flarer James Ashraf MD, PhD Estimated Blood Loss Estimated Blood Loss: 10 mL Medication(s) Medication(s): Fentanyl, Heparin, Lidocaine 1% and Nitroglycerin Summary of Findings Brief description of procedure: Patient was brought to the cardiac catheterization suite where he was shaved and prepped in a sterile fashion. Sedated using IV fentanyl. Soft tissues of the right wrist were anesthetized using 2 mL of 1% Xylocaine. The right radial artery was accessed with a modified Seldinger technique and a 6 Cymro radial artery glide sheath was placed. Patient arrived after having been on a heparin drip. ACT was checked and additional heparin was provided IV as needed to maintain therapeutic ACT. Since the patient's blood pressure was on the low side, only IA nitroglycerin was provided through the radial sheath. All catheters were advanced and exchanged over a 0.035 J-tip wire. We did require a Wholey wire on initial catheter advancement secondary to tortuosity in the innominate artery. Left coronary angiography was performed in orthogonal views with a 5 Cymro JL 3.5 diagnostic catheter. Right coronary angiography was performed nonselectively with a 5 Cymro multipurpose 1 diagnostic catheter. Diagnostic catheters were removed. We moved to intervention. A 6 Cymro EBU 3.5 guide catheter was used to engage the left main coronary. Through this, a BMW universal guidewire was advanced and positioned distally in the LAD. Over this, a 2.5 x 12 mm compliant balloon was used to predilate the in-stent restenosis and thrombosis. Maximum atmospheres was 14. This balloon was then deflated and removed. In its place, a 2.5 x 12 mm noncompliant balloon was advanced. The area of in-stent restenosis was then postdilated up to 22 andrés. This inflation was followed by inflation more proximally throughout the stented segment up to 22 andrés. The balloon was deflated and removed. Form Building Supervisor angiography was performed. Guidewire was removed and final angiographic evaluation was performed. The guide catheter was then removed. Radial artery sheath was removed. Hemostasis was obtained using a TR band. Patient was hemodynamically stable and returned to his room. This ended the case. Coronary angiographic findings: Left main trunk: Large caliber vessel which trifurcates into the LAD, left circumflex, and ramus intermedius. Diffuse mild disease. LAD: Large caliber and transapical. Gives a large first septal branch and a large branching first diagonal. The diagonal has diffuse mild disease with ostium up to 40% narrowed. Proximal LAD has diffuse mild calcification and mild CAD. There appears to be a stent beginning just before the first diagonal and extending through the mid segment. There is in-stent restenosis and evidence of thrombosis within the stented segment. Up to 99% occluded. MARYLIN II flow beyond the stent. The distal LAD has mild luminal irregularities. Left circumflex: Large caliber and nondominant vessel. Travels in the AV groove. AV groove vessel has a first major branch which itself has multiple branches. At this OM has a focal 50% stenosis. The AV groove segment of the proximal circumflex has diffuse mild disease. The OM1 and its minor branches have no more than mild luminal irregularities. Ramus intermedius: Small caliber and short. No disease. RCA: Heavily calcified with chronic total ostial occlusion. The distal vessel fills via left to right collaterals. The distal RCA appears to be large. The PDA and posterolateral branches are small in caliber but long. PTCA of mid LAD stent: 0% residual stenosis post PTCA No evidence of dissection or perforation post PTCA MARYLIN-3 flow post PTCA Hemodynamics Rest Ao:: 88/53 mmHg, mean 70 mmHg Final Ao: 108/56 mmHg, mean 77 mmHg LV: Not performed Recommendations Recommendations: PCI without planned CABG Radiation Exposure (mGy) 1990 mGy, fluoroscopy time 8.4 minutes Contrast (mls) 150 mL Anesthesia 25 mcg IV fentanyl Procedural Complication(s) None Disposition PCU I attest to the content of the Intraoperative Record and any orders documented therein. Any exceptions are noted below. [facility] Card Cath Procedure Codes Cardiac Catheterization Procedure 1: Cardiovascular Cath Procedures: 45277 Coronaries Moderate Sedation Procedure 1: Sedation/Anesthesia: 87888 Mod Sedation by the same physician;Init15 Min Child Age 5 & Up Procedure 2: Sedation/Anesthesia: 06194 Mod Sedation by the same physician; Ea [id number] Minutes Angioplasty Procedure 1: Cardiovascular Angioplasty Procedures: 43605 PTCA; Single mafor coronary artery or branch RC LC LD (LAD, in-stent restenosis) PG Care Time/CCT Total # of Minutes Spent Total Time Spent with Patient: Total time spent is greater than 50% in coordination of care (as documented) at patient's floor/unit and/or counseling patient:
--- NOTE | 2022-06-17 19:47 | Electrocardiogram Report ---
Test Reason : Blood Pressure : / mmHG Vent. Rate : 094 BPM Atrial Rate : 094 BPM P-R Int : 200 ms QRS Dur : 098 ms QT Int : 356 ms P-R-T Axes : 044 -02 057 degrees QTc Int : 445 ms Normal sinus rhythm Possible Left atrial enlargement Nonspecific ST abnormality Abnormal ECG When compared with ECG of 10-JAN-2022 11:27, Premature ventricular complexes are no longer Present Vent. rate has increased BY 33 BPM Criteria for Septal infarct are no longer Present ST now depressed in Lateral leads Confirmed by Tico Stewart ([id number]) on 06/17/2022 7:47:25 PM Referred By: REFERRED SELF Confirmed By:Tico Stewart
--- NOTE | 2022-06-17 21:03 | Electrocardiogram Report ---
Test Reason : Blood Pressure : / mmHG Vent. Rate : 084 BPM Atrial Rate : 084 BPM P-R Int : 206 ms QRS Dur : 086 ms QT Int : 372 ms P-R-T Axes : 037 -13 026 degrees QTc Int : 439 ms Normal sinus rhythm Possible Left atrial enlargement Borderline ECG When compared with ECG of 17-JUN-2022 02:19, (unconfirmed) Premature ventricular complexes are no longer Present Confirmed by Tico Stewart ([id number]) on 06/17/2022 9:02:38 PM Referred By: REFERRED SELF Confirmed By:Tico Stewart
--- NOTE | 2022-06-17 21:18 | Electrocardiogram Report ---
Test Reason : Blood Pressure : / mmHG Vent. Rate : 072 BPM Atrial Rate : 072 BPM P-R Int : 202 ms QRS Dur : 088 ms QT Int : 428 ms P-R-T Axes : 047 -10 015 degrees QTc Int : 468 ms Poor data quality, interpretation may be adversely affected Normal sinus rhythm Possible Left atrial enlargement Borderline ECG When compared with ECG of 17-JUN-2022 03:28, (unconfirmed) Nonspecific T wave abnormality now evident in Anterior leads Confirmed by Tico Stewart ([id number]) on 06/17/2022 9:17:52 PM Referred By: REFERRED SELF Confirmed By:Tico Stewart
--- NOTE | 2022-06-17 22:06 | Electrocardiogram Report ---
Test Reason : Blood Pressure : / mmHG Vent. Rate : 099 BPM Atrial Rate : 099 BPM P-R Int : 190 ms QRS Dur : 088 ms QT Int : 352 ms P-R-T Axes : 039 -09 035 degrees QTc Int : 451 ms Sinus rhythm with occasional Premature ventricular complexes Possible Left atrial enlargement Inferior infarct , age undetermined Abnormal ECG When compared with ECG of 17-JUN-2022 01:47, (unconfirmed) Premature ventricular complexes are now Present Confirmed by Tico Stewart ([id number]) on 06/17/2022 10:05:32 PM Referred By: REFERRED SELF Confirmed By:Tico Stewart
[2022-06-18 06:07] LABS: Hematocrit (blood only) 33.5 % (40.1-51.0); Hemoglobin 11.3 g/dl (14.0-18.0); Mean Corpuscular Hemoglobin 31.5 pg (25.0-34.0); Mean Corpuscular Hgb Conc 33.7 g/dL (32.0-36.0); Mean Corpuscular Volume 93.3 fL (80.0-100.0); Mean Platelet Volume 11.4 fL (9.4-12.4); Platelet Count 202 K/uL (130-400); RDW Coefficient of Variation 12.8 % (11.5-14.5); RDW Standard Deviation 43.5 fL (36.4-46.3); Red Blood Count 3.59 M/uL (4.63-6.08); White Blood Count 8.91 K/ul (4.8-10.8)
[2022-06-18 06:31] LABS: BUN Creatinine Ratio 13.9 (10-20); Calcium 8.7 mg/dl (8.5-10.1); Creatinine Clr Calc Pharmacy 83.1 ml/min; Est GFR (African American) 97.9 ml/min; Est GFR (Non-African American) 84.5 ml/min; Magnesium 1.7 mg/dl (1.7-2.4); Potassium 3.9 mmol/L (3.5-5.1)
--- NOTE | 2022-06-18 07:50 | Hospitalist Progress Note ---
Date of Service June 18, 2022 Assessment & Plan (1) Acute non-ST elevation myocardial infarction (NSTEMI): Plan: Misha is a 87 y/o male with accelerated exertional chest discomfort who presents tonight due to his pain being unremitting. 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 Then on Saturday 1 day prior to admission he had intermittent discomfort through the day which was definitely exertional in nature. Evening of admission his chest pain was relieved by rest but then when he got up to go to the bathroom and melanotic came back and was more significant and he subsequently presented to the emergency department. He states the chest pain was in the center of his chest and did not radiate to arm/jaw. He has received nitro and morphine which improved the pain but it was still present. PMH includes aortic stenosis, type 2 diabetes, LAD drug-eluting stent in December 2021 (follows with Dr. Gibbs). Acute Non-ST Elevation Myocardial Infarction -Serial EKGs did not show acute ST elevations -High sensitivity troponin 1623-->23967, aPTT:>139, 70.6 -Echo showed new moderately reduced EF (35-40%), new segmental wall motion abnormalities (EF was 65 to 70% with no regional wall motion abnormalities in April 13) -Intervential cardiology consult placed, Dr. Ashraf examined patient and took patient to clinical lab specialist -Catheterization completed: re-stenosis noted of LAD stent, successful PCI -continue carvedilol, atorvastatin, aspirin and Brilinta CAD -Discussed lifestyle choices for both coronary artery disease and diabetes -Consider starting VIRGILIO inhibitor/ARB or Entresto Type 2 Diabetes Mellitus -At home takes Sitagliptin, metformin and glimepiride -Will be on sliding scale insulin during admission -Would consider stopping sitagliptin at discharge Diet: Carb consistent DVT PPx: Heparin Code Status: Full Code (2) Angina pectoris, unspecified: (3) Aortic stenosis: (4) Diabetes mellitus, type 2: Admission and Anticipated Discharge Date Admission Date: June 17, 2022 Subjective Patient seen and examined at bedside. Today Misha states he is feeling much more like himself. He denies any chest pain, shortness of breath, Review of Systems Review of Systems: As per HPI Physical Exam Constitutional: WD/WN, vitals as above Neck: trachea midline, no thyromegaly Respiratory: normal respiratory effort, lungs clear to auscultation Gastrointestinal (Abdomen): normal bowel sounds, soft, nontender, no hepatosplenomegaly Skin: no rashes, warm and dry Psychiatric: A+Ox3, euthymic affect Results & Data Results & Data ([facility]) Vital Signs (Past 12 Hours) Vital Signs Temp Pulse Pulse Resp BP Pulse Ox O2 Del Method 06/18/22 04:56 36.7 C 77 18 112/58 L 96 Room Air 06/17/22 23:40 36.7 C 71 18 106/56 L 96 Room Air 06/17/22 23:05 108 H Resident Activity Tracking Resident Involvement: Resident Care Provided Care Provided: Adult Hospital Medicine (1) Diabetes mellitus, type 2 Diabetes mellitus complication status: without complication Diabetes mellitus mcc insulin use: without mcc use Qualified Code(s): E11.9 - Type 2 diabetes mellitus without complications
[2022-06-18 07:52] VITALS: PULSE 73
[2022-06-18] MEDS: ATORVASTATIN 40 MG TAB PO SCH (07:59)
[2022-06-18] MEDS: carvediloL 6.25 MG TAB PO SCH (07:59)
[2022-06-18] MEDS: ISOSORBIDE MONO EXTENDED REL 30 MG TABCR PO SCH (08:00)
[2022-06-18] MEDS: ASPIRIN 81 MG ECTAB PO SCH (08:00)
[2022-06-18] MEDS ORDERED: fentaNYL citrate 100 MCG/2 ML VIAL ONE (08:02)
[2022-06-18] MEDS ORDERED: niCARdipine HCL INJ 2.5 MG/ML 10 ML AMP ONE (08:02)
[2022-06-18] MEDS ORDERED: MIDAZOLAM HCL 1 MG/ML 2ML VIAL ONE (08:02)
[2022-06-18] MEDS ORDERED: HEPARIN (PORCINE) 1000 UNIT/ML 10 ML (CATH LAB USE ONLY) ONE (08:02)
[2022-06-18] MEDS ORDERED: NITROGLYCERIN/D5W 100MCG/ML 20ML SYR ONE (08:02)
[2022-06-18 08:13] LABS: Estimated Average Glucose 177 mg/dl; Hemoglobin A1C 7.8 % (4.5-5.6)
[2022-06-18] MEDS: INSULIN ASPART PER UNIT SC SCH ×2 (08:20→12:42)
[2022-06-18] MEDS ORDERED: TICAGRELOR 90 MG TAB PO SCH (09:00)
[2022-06-18 11:20] VITALS: BP 106/65; TEMP 97.3; O2SAT 99
[2022-06-18] MEDS ORDERED: TICAGRELOR 90 MG HOME PACK PO ONE (16:30)
--- NOTE | 2022-06-18 16:44 | Cardiology Progress Note ---
Date of Service June 18, 2022 Assessment & Plan (1) Acute non-ST elevation myocardial infarction (NSTEMI): Plan: Post POBAto mid LAD in-stent thrombosis Chronically occluded RCA with [id number] collaterals residual FFR negative 50% mLCx into OM 2 2. Ischemic cardiomyopathyEF 35 to 40%, and distal LAD distribution wall motion abnormality 3. Moderate 4. Dyslipidemia 5. Type 2 DM 6. Hypertension Stable from a cardiac standpoint. No recurrent chest pain. Hemodynamically and electrically stable No access to complications From a cardiac standpoint okay with discharge today. Home on: DAPT with aspirin, ticagrelor Continue current carvedilol, add losartan 25 mg daily Can stop Imdur Continue current statin Follow-up with me in 1 week. Admission and Anticipated Discharge Date Admission Date: June 17, 2022 Subjective Feeling well. No recurrent chest pain. Up walking the halls. No other new complaints Telemetry reviewedsinus rhythm, no events Review of Systems Review of Systems: All systems reviewed & are unremarkable except as noted in HPI & below Physical Exam Physical Exam: General: Comfortable HEENT: Sclerae anicteric Lungs: Few fine crackles at bases Cardiac: Regular rate and rhythm, 3-6 systolic ejection murmur Vascular: Right radial artery access site with no ecchymosis, hematoma. Distal pulse and sensation intact. Abdomen: Soft, nontender Extremities: Well perfused, no peripheral edema Neuro: Nonfocal Psych: Alert orient x3, normal affect and mood Results & Data ([facility]) Vital Signs (Past 12 Hours) Vital Signs Temp Pulse Resp BP Pulse Ox O2 Del Method 06/18/22 11:19 97.3 F L 73 16 106/65 99 Room Air 06/18/22 07:51 97.9 F 73 18 113/67 97 Room Air 06/18/22 04:56 98.1 F 77 18 112/58 L 96 Room Air PG Care Time/CCT Total # of Minutes Spent Total Time Spent with Patient: Total time spent is greater than 50% in coordination of care (as documented) at patient's floor/unit and/or counseling patient: Coding Level of Care Code 80954 Subseq Hosp Care Lvl 3 Diagnoses Acute non-ST elevation myocardial infarction (NSTEMI) I21.4
--- NOTE | 2022-06-18 18:08 | Discharge Summary ---
Date of Service June 18, 2022 Admission HPI Per Admitting Provider 87-year-old male with accelerated exertional chest discomfort who presents tonight due to his pain being unremitting. 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 Then on Saturday 1 day prior to admission he had intermittent discomfort through the day which was definitely exertional in nature. Evening of admission his chest pain was relieved by rest but then when he got up to go to the bathroom and melanotic came back and was more significant and he subsequently presented to the emergency department. Patient had a PCI with LAD drug-eluting stent in December 2021. He is not have mild to moderate aortic stenosis. He is followed by Dr. Gibbs. He is diabetic. His pain improved with nitrates but did not completely resolve Emergency department he is not on acute EKG with a high-sensitivity troponin of 1500. There is mild ST elevation in lead V1 but this appears to be isolated Admission Exam Per Admitting Provider The patient appeared well nourished and normally developed. Vital signs as documented. Head exam is normocephalic atraumatic Neck is without JVD, thyromegaly, or carotid bruits. Lungs are clear to auscultation,, despite chest x-ray changes) no focal loss of breath sounds Cardiac exam, Rhythm is regular.. No murmurs, rubs or gallops. Abdominal exam reveals normal bowel sounds, soft non tender, no masses Extremities are trace edematous and both pedal pulses are present Neurologic exam is alert and oriented, no focal loss of strength or sensation Skin is without bruises or rashes Psychologically is with concerns for anxiety Principal Diagnosis NSTEMI Discharge Exam Constitutional WD/WN, vitals as above Neck normal visual inspection Respiratory normal respiratory effort, lungs clear to auscultation Cardiovascular Rate/Rhythm: regular rate and regular rhythm Extremities: no edema Gastrointestinal (Abdomen) normal bowel sounds, soft, nontender, no hepatosplenomegaly Psychiatric A+Ox3, euthymic affect Discharge Data Allergies Allergy/AdvReac Type Severity Reaction Status Date / Time No Known Allergies Allergy Verified 04/03/22 14:54 Consultations 06/17/22 02:53 ED Decision to Admit Stat 06/17/22 04:39 Consult Cardiology Routine 06/17/22 11:19 Consult Cardiac Catheterization Stat 06/17/22 13:22 Consult Cardiac Rehabilitation Routine Procedures Performed Operation Date: 06/17/22 12:30 Actual Procedures p POBA SGL Vessel - James Ashraf MD, PhD p Cath, Cors with Grafts (no LV) - James Ashraf MD, PhD s Cineradiography w/Routine Exam - James Ashraf MD, PhD s Cardiac Heart Alert - James Ashraf MD, PhD Ordered Studies 06/17/22 12:20 CL Cath Imgs for PACS use only Stat Hospital Course (1) Acute non-ST elevation myocardial infarction (NSTEMI): Misha is a 87 y/o male with accelerated exertional chest discomfort who presents tonight due to his pain being unremitting. 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 Then on Saturday 1 day prior to admission he had intermittent discomfort through the day which was definitely exertional in nature. Evening of admission his chest pain was relieved by rest but then when he got up to go to the bathroom and melanotic came back and was more significant and he subsequently presented to the emergency department. He states the chest pain was in the center of his chest and did not radiate to arm/jaw. He has received nitro and morphine which improved the pain but it was still present. PMH includes aortic stenosis, type 2 diabetes, LAD drug-eluting stent in December 2021 (follows with Dr. Gibbs). -Serial EKGs did not show acute ST elevations, but High sensitivity troponin 1623-->70747 and aPTT:>139, 70.6. Echo showed new moderately reduced EF (35- 40%), new segmental wall motion abnormalities (EF was 65 to 70% with no regional wall motion abnormalities in April 13). Intervential cardiology consult placed, Dr. 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 Catheterization completed: re-stenosis noted of LAD stent, successful PCI. Today 06/18 patient notes he is feeling like himself again and denies any chest pain, SOB, N/V. Patient was started on Brilinta and losartan. Imdur was discontinued. Patient is instructed to follow up with Dr. Gibbs in 1 week. (2) Angina pectoris, unspecified: (3) Aortic stenosis: (4) Diabetes mellitus, type 2: Total Time Total Time Spent Total Time Spent (In Minutes): . Discharge Plan Discharge Items Patient Disposition: Home - Self-Care Reason For Visit: UNSTABLE ANGINA, NSTEMI Discharge Diagnosis: NSTEMI Condition on Discharge: Fair Activity: Per Instructions section Non-emergency contact: Primary Care Provider and [employer] Call non-emergency contact if: your symptoms worsen and your pain is worsening Follow-up/Referrals: Jerome Crum MD [Primary Care Provider] - Malick Gibbs MD [Physician] - (In one week ) Diet: Carb Consistent or DM2 and Heart Healthy Addtl Attending Provider Instructions: During your hospital stay you were started on 2 new medications: 1. Brilinta (ticagrelor), (you will take this instead of plavix) 2. 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 Gibbs, in 1 week +You should also reach out to your primary care doctor to set up a hospital discharge follow up appointment in 1-2 weeks Pending Studies at Discharge: No Stand-Alone Forms: My The car easily beat, Smoking Cessation Medications and DC Order Prescriptions: New Brilinta 90 mg Tablet 90 mg PO BID 30 Days Qty: 60 4RF losartan 25 mg tablet 25 mg PO DAILY Qty: 30 4RF Continued (DME) OneTouch Verio test strips Strip See Rx Instructions .ROUTE .MEDSUPPLY Qty: 200 3RF Rx Instructions: use to test BID metformin 1,000 mg tablet 1,000 mg PO BID Qty: 180 3RF sitagliptin 50 mg tablet 50 mg PO QAM Qty: 90 3RF carvedilol 6.25 mg tablet 6.25 mg PO DAILY Qty: 90 3RF atorvastatin 40 mg tablet 40 mg PO DAILY Qty: 90 3RF betamethasone dipropionate 0.05 % cream 1 applic topical DAILY PRN (Reason: skin irritation) Qty: 15 1RF glimepiride 2 mg tablet 2 mg PO QAM Qty: 90 3RF Centrum Silver 0.4-300-250 mg-mcg-mcg Tablet 1 tab PO QAM aspirin 81 mg Tablet,Delayed Release (Dr/Ec) 81 mg PO QAM Glucocil Otc 2 tab PO UD Discontinued isosorbide mononitrate 60 mg tablet extended release 24 hr 30 mg PO DAILY clopidogrel 75 mg tablet 75 mg PO DAILY Qty: 30 6RF Discharge Orders: Discharge Order (Routine); Ordered 06/18/22 Ordered By: Lillian Alarcon/Other Patient Handouts: High Blood Sugar (Hyperglycemia), Hypoglycemia (Low Blood Sugar), Managing Type 2 Diabetes Admission Data Admit Date/Time: 06/17/22 03:04 Attending Provider: Aniceto Chaves Admit Provider: Klaus Roberts Primary Care Provider: Jerome Crum Other Providers: Malick Gibbs ; James Ashraf ; Klaus Roberts ; Zaida Huber Other Interventions: Discharge Summary Assessment (RN) Last Done: 06/18/22 17:53 Supervising Physician Co-Signing Physician Notes I personally examined the patient and verified all prado points of history and exam, discussed case, and agree with decision making with Dr Kennedy. Feeling good. Would like to go home. No new complaints. Vitals noted, in general he is awake and alert pleasant no distress. HEENT normocephalic atraumatic mucous membranes moist. Breathing unlabored no accessory muscle use good effort. Skin shows no rashes no pallor or icterus. Neuro without focal deficits. NSTEMI/coronary artery disease/new systolic dysfunction with compensated systolic CHFstable for home med management, secondary risk reduction. Afterload reduction to be determined by cardiology. Consider Entresto at outpatient follow-up if blood pressure can tolerate otherwise as above
--- NOTE | 2022-06-18 19:37 | Billing Data ---
Date of Service June 18, 2022 Coding Level of Care Code D/C DAY MANAGEMENT <30 MINS
--- NOTE | 2022-06-18 22:01 | Electrocardiogram Report ---
Test Reason : Blood Pressure : / mmHG Vent. Rate : 080 BPM Atrial Rate : 080 BPM P-R Int : 196 ms QRS Dur : 086 ms QT Int : 420 ms P-R-T Axes : 054 003 013 degrees QTc Int : 484 ms Normal sinus rhythm T wave abnormality, consider anterior ischemia Prolonged QT Abnormal ECG When compared with ECG of 17-JUN-2022 09:34, T wave inversion now evident in Anterior leads Confirmed by Olivier Kingston ([id number]) on 06/18/2022 10:00:31 PM Referred By: REFERRED SELF Confirmed By:Olivier Kingston
== END 2022-06-18 18:30 | disposition home or self-care (01) | DRG 251 ==
LOC: ED 01:40 → SUATTDRO 03:04 → 2S 03:04
PROC: CLB.CCG (2022-06-17 12:30)
DX: I10 Essential (primary) hypertension; Y92.009 Unspecified place in unspecified non-institutional (private) residence as the place of occurrence of the external cause; Z79.84 Long term (current) use of oral hypoglycemic drugs; I25.110 Atherosclerotic heart disease of native coronary artery with unstable angina pectoris; I25.5 Ischemic cardiomyopathy; Z79.82 Long term (current) use of aspirin; E11.9 Type 2 diabetes mellitus without complications; T82.855A Stenosis of coronary artery stent, initial encounter; Z79.02 Long term (current) use of antithrombotics/antiplatelets; Y71.2 Prosthetic and other implants, materials and accessory cardiovascular devices associated with adverse incidents; E78.5 Hyperlipidemia, unspecified; I35.0 Nonrheumatic aortic (valve) stenosis; Z95.5 Presence of coronary angioplasty implant and graft; D64.9 Anemia, unspecified; I21.4 Non-ST elevation (NSTEMI) myocardial infarction